=== PATIENT | male | born 1945 | race Caucasian/White ===

== ENCOUNTER 2021-09-17 13:34 | Emergency (ER) | payer MEDICARE, BC ==
[2021-09-17 14:17] LABS: #Eosinphils 0.1 thou/uL (0.0-0.7); #Lymphocytes 1.4 thou/uL (1.20-3.40); #Monocytes 0.8 thou/uL (0.11-0.59); %Basophils 0.4 % (0.0-1.0); %Monocytes 9.4 % (0.0-10.0); %Neutrophils 72.2 % (42.0-75.0); Hemoglobin 10.9 g/dL (14.0-18.0); Mean Corpuscular HGB CONC 33.1 g/dL (32.0-36.0); Mean Corpuscular Hemoglobin 27.5 pg (27.0-31.0); Mean Corpuscular Volume 82.9 fL (78.0-98.0); Mean Platelet Volume 7.6 fL (7.4-10.4); Platelet Count 320 thou/uL (130-400); RBC Distribution Width 13.3 % (11.5-14.5); Red Blood Cell (RBC) Count 3.96 mill/uL (4.70-6.10); White Blood Cell (WBC) Count 8.4 thou/uL (4.8-10.8)
[2021-09-17 14:38] LABS: Bilirubin Negative (Negative); Blood, Urine Negative (Negative); Clarity Clear (Clear); Glucose, Urine (Dipstick) Greater than 1000 mg/dL (Negative); Ketone, Urine Negative (Negative); Leukocyte Negative Leu/uL (Negative); Nitrite Negative (Negative); Protein, Urine (Dipstick) 20 mg/dL (Neg-Trace); Specific Gravity, Urine 1.024 (1.002-1.036); Urobilinogen Normal mg/dL (Less than 2)
[2021-09-17 14:38] LABS: ALT (SGPT) Less than 7 U/L (8-55); AST (SGOT) 6 U/L (5-34); Albumin 3.3 g/dL (3.4-4.8); Alkaline Phosphatase 126 U/L (40-110); Anion Gap 14 mmol/L (10-20); BUN (Urea Nitrogen) 11 mg/dL (8.4-25.7); Bilirubin, Total 0.3 mg/dL (0.2-1.2); Calc. Creatinine Clearance 0 mL/min (70-130); Carbon Dioxide 25 mmol/L (23-31); Chloride 99 mmol/L (98-107); Globulin 3.8 g/dL (2.4-3.5); Glucose 359 mg/dL (83-110); Potassium 3.9 mmol/L (3.5-5.1); Protein, Total 7.1 g/dL (5.8-8.1); Sodium 134 mmol/L (136-145)
[2021-09-17 14:40] LABS: Acetaminophen Less than 10.0 mcg/mL (10.0-30.0); Alcohol Less than 10 mg/dL (Less than 10); Salicylate Less than 8.0 mg/dL (15.0-30.0)
[2021-09-17 14:46] LABS: Amphetamine Not Detected (NotDetected); Barbiturates Screen Not Detected (NotDetected); Benzodiazepine Screen Not Detected (NotDetected); Cocaine Metabolite Screen Not Detected (NotDetected); Methadone Not Detected (NotDetected); Methamphetamine Not Detected (NotDetected); Opiate Screen Not Detected (NotDetected); Oxycodone Screen Not Detected (NotDetected); Phencyclidine (PCP) Not Detected (NotDetected); THC/Cannabinoid Screen Not Detected (NotDetected); Tricyclic Screen Not Detected (NotDetected)
[2021-09-17] MEDS ORDERED: Insulin Regular 300 UNITS/3 ML VIAL ONE (14:56)
[2021-09-17] MEDS ORDERED: Gabapentin 300 MG CAP PO SCH ×2 (15:15→21:15)
[2021-09-17] MEDS ORDERED: Insulin Glargine 30 UNITS/0.3 ML VIAL SC SCH (21:15)
[2021-09-17] MEDS ORDERED: traZODone HCl 50 MG TAB PO SCH (21:15)
[2021-09-17] MEDS ORDERED: traZODone HCl 50 MG TAB ONE (21:54)
[2021-09-18] MEDS ORDERED: Acetaminophen 500 MG TAB ONE ×3 (02:19→17:28)
[2021-09-19] MEDS ORDERED: Insulin Regular 300 UNITS/3 ML VIAL ONE (00:26)
[2021-09-19] MEDS ORDERED: traZODone HCl 50 MG TAB ONE (00:31)
[2021-09-19] MEDS ORDERED: Gabapentin 300 MG CAP PO SCH ×3 (00:45→21:00)
[2021-09-19] MEDS ORDERED: traZODone HCl 50 MG TAB PO SCH ×2 (00:45→09:30)
[2021-09-19] MEDS ORDERED: Insulin Glargine 30 UNITS/0.3 ML VIAL SC SCH ×3 (00:45→21:00)
[2021-09-19] MEDS ORDERED: Atorvastatin Calcium 40 MG TAB PO SCH ×2 (00:45→09:45)
[2021-09-19] MEDS ORDERED: Carvedilol 6.25 MG TAB PO SCH ×3 (00:45→21:00)
[2021-09-19] MEDS ORDERED: Insulin Regular 300 UNITS/3 ML VIAL SC SCH (09:30)
[2021-09-19] MEDS ORDERED: Acetaminophen 500 MG TAB PO SCH (09:30)
[2021-09-19 09:46] LABS: SARS-CoV-2 NAA Rapid Test Not Detected (NotDetected)
[2021-09-19] MEDS ORDERED: Furosemide 40 MG TAB PO SCH (14:00)
[2021-09-19] MEDS ORDERED: glipiZIDE 5 MG TAB PO SCH (16:30)
== END 2021-09-19 19:14 ==
LOC: ERS 13:34
DX: R45.851 Suicidal ideations (principal); E11.9 Type 2 diabetes mellitus without complications; E78.5 Hyperlipidemia, unspecified; E78.00 Pure hypercholesterolemia, unspecified; J44.9 Chronic obstructive pulmonary disease, unspecified; I11.0 Hypertensive heart disease with heart failure; I50.9 Heart failure, unspecified; Z20.822 Contact with and (suspected) exposure to COVID-19; Z79.4 Long term (current) use of insulin; Z79.899 Other long term (current) drug therapy
CPT/HCPCS: 51701; 80053; 80306; 80307; 81003; 82962; 85025; 93005; 99285; U0002; 36415; 36416; J1815

== ENCOUNTER 2021-12-22 10:15 | Emergency (ER) | payer OTHER, MEDICARE, BC ==
[2021-12-22 11:13] LABS: #Eosinphils 0.2 thou/uL (0.0-0.7); #Lymphocytes 1.3 thou/uL (1.20-3.40); #Monocytes 0.5 thou/uL (0.11-0.59); #Neutrophils 6.7 thou/uL (1.40-6.50); %Basophils 0.5 % (0.0-1.0); %Eosinophils 1.9 % (0.0-10.0); %Lymphocytes 14.8 % (21.0-51.0); %Monocytes 5.9 % (0.0-10.0); %Neutrophils 76.9 % (42.0-75.0); Mean Corpuscular HGB CONC 31.1 g/dL (32.0-36.0); Mean Corpuscular Hemoglobin 26.7 pg (27.0-31.0); Mean Corpuscular Volume 85.7 fL (78.0-98.0); Mean Platelet Volume 7.9 fL (7.4-10.4); Platelet Count 349 thou/uL (130-400); RBC Distribution Width 14.8 % (11.5-14.5); Red Blood Cell (RBC) Count 4.49 mill/uL (4.70-6.10); White Blood Cell (WBC) Count 8.8 thou/uL (4.8-10.8)
[2021-12-22 11:23] LABS: ALT (SGPT) 16 U/L (8-55); AST (SGOT) 13 U/L (5-34); Acetaminophen Less than 10.0 mcg/mL (10.0-30.0); Albumin 3.7 g/dL (3.4-4.8); Alcohol Less than 10 mg/dL (Less than 10); Alkaline Phosphatase 120 U/L (40-110); Anion Gap 14 mmol/L (10-20); BUN (Urea Nitrogen) 13 mg/dL (8.4-25.7); Bilirubin, Total 0.3 mg/dL (0.2-1.2); CK (CPK) 30 U/L (30-200); Calc. Creatinine Clearance 0 mL/min (70-130); Calcium 9.6 mg/dL (7.8-10.44); Carbon Dioxide 26 mmol/L (23-31); Chloride 103 mmol/L (98-107); Estimated GFR 77; Globulin 3.6 g/dL (2.4-3.5); Glucose 202 mg/dL (83-110); Potassium 3.9 mmol/L (3.5-5.1); Protein, Total 7.3 g/dL (5.8-8.1); Salicylate Less than 8.0 mg/dL (15.0-30.0); Sodium 139 mmol/L (136-145)
[2021-12-22 12:23] LABS: Amphetamine Not Detected (NotDetected); Barbiturates Screen Not Detected (NotDetected); Benzodiazepine Screen Not Detected (NotDetected); Cocaine Metabolite Screen Not Detected (NotDetected); Methadone Not Detected (NotDetected); Methamphetamine Not Detected (NotDetected); Opiate Screen Detected (NotDetected); Oxycodone Screen Not Detected (NotDetected); Phencyclidine (PCP) Not Detected (NotDetected); THC/Cannabinoid Screen Not Detected (NotDetected); Tricyclic Screen Not Detected (NotDetected)
[2021-12-22 18:53] LABS: SARS-CoV-2 NAA Rapid Test Not Detected (NotDetected)
[2021-12-22 23:04] LABS: Bilirubin Negative (Negative); Blood, Urine Negative (Negative); Clarity Clear (Clear); Glucose, Urine (Dipstick) Normal (Negative); Ketone, Urine Negative (Negative); Leukocyte Negative Leu/uL (Negative); Nitrite Negative (Negative); Protein, Urine (Dipstick) Negative (Neg-Trace); Specific Gravity, Urine 1.017 (1.002-1.036); Urobilinogen Normal mg/dL (Less than 2)
[2021-12-23] MEDS ORDERED: Gabapentin 300 MG CAP PO SCH (02:30)
[2021-12-23] MEDS ORDERED: Ondansetron ODT 4 MG TAB ONE (12:51)
== END 2021-12-23 12:51 ==
LOC: ERS 10:15
DX: R45.851 Suicidal ideations (principal); E11.9 Type 2 diabetes mellitus without complications; E78.00 Pure hypercholesterolemia, unspecified; I10 Essential (primary) hypertension; J44.9 Chronic obstructive pulmonary disease, unspecified; N40.0 Benign prostatic hyperplasia without lower urinary tract symptoms; Z20.822 Contact with and (suspected) exposure to COVID-19
CPT/HCPCS: 36415; 71045; 80053; 80306; 80307; 81003; 82550; 84443; 85025; 93005; Q0162; U0002

== ENCOUNTER 2022-07-28 11:39 | Inpatient (IN) | payer MEDICARE, BC ==
[2022-07-28 13:01] LABS: #Basophils 0.1 thou/uL (0.0-0.2); #Eosinphils 0.1 thou/uL (0.0-0.7); #Lymphocytes 1.3 thou/uL (1.20-3.40); #Monocytes 0.6 thou/uL (0.11-0.59); #Neutrophils 4.2 thou/uL (1.40-6.50); %Basophils 0.9 % (0.0-1.0); %Eosinophils 1.4 % (0.0-10.0); %Lymphocytes 20.7 % (21.0-51.0); %Monocytes 9.4 % (0.0-10.0); %Neutrophils 67.6 % (42.0-75.0); Hemoglobin 12.3 g/dL (14.0-18.0); Mean Corpuscular HGB CONC 32.4 g/dL (32.0-36.0); Mean Corpuscular Hemoglobin 27.2 pg (27.0-31.0); Mean Corpuscular Volume 83.9 fl (78.0-98.0); Mean Platelet Volume 8.4 fL (7.4-10.4); Platelet Count 291 10x3/uL (130-400); RBC Distribution Width 14.8 % (11.5-14.5); Red Blood Cell (RBC) Count 4.53 mill/uL (4.70-6.10); White Blood Cell (WBC) Count 6.3 10x3/uL (4.8-10.8)
[2022-07-28 13:36] LABS: ALT (SGPT) 17 U/L (8-55); AST (SGOT) 17 U/L (5-34); Albumin 3.5 g/dL (3.4-4.8); Alkaline Phosphatase 115 U/L (40-110); Anion Gap 17 mmol/L (10-20); BUN (Urea Nitrogen) 14 mg/dL (8.4-25.7); Bilirubin, Total 0.3 mg/dL (0.2-1.2); Calc. Creatinine Clearance 0 mL/min (70-130); Calcium 8.9 mg/dL (7.8-10.44); Carbon Dioxide 20 mmol/L (23-31); Chloride 99 mmol/L (98-107); Estimated GFR 51; Globulin 3.5 g/dL (2.4-3.5); Glucose 283 mg/dL (83-110); Magnesium 1.7 mg/dL (1.6-2.6); Potassium 3.8 mmol/L (3.5-5.1); Sodium 132 mmol/L (136-145)
[2022-07-28 13:48] LABS: Actual Bicarbonate (HCO3v) 22 mEq/L (22-28); Base Excess -0.2 mEq/L (-2.0 to +3.0); Calcium, Ionized (venous) 1.08 mmol/L (1.16-1.32); Chloride (VBG) 100 mmol/L (98-106); Potassium (VBG) 3.83 mmol/L (3.70-5.30); Sodium 132.1 mmol/L (133-146); pH (venous) 7.49 (7.32-7.43)
[2022-07-28 15:29] LABS: Bacteria/HPF 1+ HPF (None Seen); Bilirubin Negative (Negative); Blood, Urine Negative (Negative); Clarity Clear (Clear); Glucose, Urine (Dipstick) 30 mg/dL (Negative); Ketone, Urine Negative (Negative); Leukocyte Negative Leu/uL (Negative); Nitrite Negative (Negative); Protein, Urine (Dipstick) 30 mg/dL (Neg-Trace); RBC/HPF 0-3 HPF (0-3); Specific Gravity, Urine 1.021 (1.002-1.036); Squamous Epithelial 0-3 HPF (0-3); Urobilinogen Normal mg/dL (Less than 2); WBC/HPF 0-3 HPF (0-3); pH, Urine 5.5 (5.0-9.0)
[2022-07-28] MEDS ORDERED: Senokot S 8.6-50 MG TAB PO PRN (16:43)
[2022-07-28] MEDS ORDERED: Ondansetron ODT 4 MG TAB PO PRN (16:43)
[2022-07-28] MEDS ORDERED: Ondansetron PF 4 MG/2 ML Vial IVP PRN (16:43)
[2022-07-28] MEDS ORDERED: Calcium Carbonate 500 MG ChewTAB PO PRN (16:43)
[2022-07-28] MEDS ORDERED: cefTRIAXone (ROCEPHIN) 2 GM VIAL ONE (17:36)
[2022-07-28 17:41] LABS: Lactic Acid 1.9 mmol/L (0.5-2.2)
[2022-07-28 18:03] LABS: Troponin I Less than 0.010 ng/mL (< 0.028)
[2022-07-28] MEDS ORDERED: HumaLOG 300 UNITS/3 ML VIAL SC PRN (18:25)
[2022-07-28] MEDS ORDERED: Dextrose 5% in Water 1,000 ML IV PRN (18:25)
[2022-07-28] MEDS ORDERED: Dextrose 50% Abboject 50 ML SYRINGE SLOW IVP PRN (18:25)
[2022-07-28 19:01] LABS: SARS-CoV-2 NAA Rapid Test Not Detected (NotDetected)
[2022-07-28] MEDS: Mometasone/Formoterol 200/5 60 PUFF INH SCH (19:11)
[2022-07-28] MEDS: Sodium Chloride 0.9% 1,000 ML IV SCH (19:13)
[2022-07-28] MEDS: Apixaban 5 MG TAB PO SCH (20:27)
[2022-07-28] MEDS: Gabapentin 300 MG CAP PO SCH (20:27)
[2022-07-28] MEDS: DULoxetine 20 MG CAP PO SCH (20:27)
[2022-07-28] MEDS: rOPINIRole HCl 2 MG TAB PO SCH (20:28)
[2022-07-28] MEDS: Insulin Glargine 30 UNITS/0.3 ML VIAL SC SCH (20:28)
[2022-07-28] MEDS: Tamsulosin HCl 0.4 MG CAP PO SCH (20:28)
[2022-07-28 21:43] LABS: Troponin I Less than 0.010 ng/mL (< 0.028)
[2022-07-28] MEDS: Acetaminophen 325 MG TAB PO PRN (21:53)
[2022-07-28] MEDS: VANCOMYCIN 2 GRAM/500 ML BAG 2 GM in Premix Bag 1 BAG IVPB SCH (22:00)
[2022-07-28] MEDS ORDERED: Melatonin 3 MG TAB PO PRN (23:21)
[2022-07-29] MEDS ORDERED: Magnesium 2 GM/50 ML(in water) 2 GM in Premix Bag 1 BAG IVPB SCH (05:00)
[2022-07-29 05:12] LABS: #Eosinphils 0.2 thou/uL (0.0-0.7); #Lymphocytes 1.6 thou/uL (1.20-3.40); #Monocytes 0.6 thou/uL (0.11-0.59); #Neutrophils 2.2 thou/uL (1.40-6.50); %Basophils 0.8 % (0.0-1.0); %Eosinophils 3.5 % (0.0-10.0); %Lymphocytes 35.6 % (21.0-51.0); %Monocytes 12.1 % (0.0-10.0); Hemoglobin 11.4 g/dL (14.0-18.0); Mean Corpuscular HGB CONC 31.2 g/dL (32.0-36.0); Mean Corpuscular Hemoglobin 27.3 pg (27.0-31.0); Mean Corpuscular Volume 87.4 fl (78.0-98.0); Mean Platelet Volume 8.3 fL (7.4-10.4); Platelet Count 234 10x3/uL (130-400); RBC Distribution Width 14.7 % (11.5-14.5); Red Blood Cell (RBC) Count 4.16 mill/uL (4.70-6.10); White Blood Cell (WBC) Count 4.5 10x3/uL (4.8-10.8)
[2022-07-29 05:14] LABS: Hemoglobin A1c 9.3 % (4.0-6.0)
[2022-07-29 05:44] LABS: ALT (SGPT) 13 U/L (8-55); AST (SGOT) 11 U/L (5-34); Albumin 3.1 g/dL (3.4-4.8); Alkaline Phosphatase 98 U/L (40-110); Anion Gap 13 mmol/L (10-20); BUN (Urea Nitrogen) 13 mg/dL (8.4-25.7); Bilirubin, Total 0.2 mg/dL (0.2-1.2); Calc. Creatinine Clearance 87 mL/min (70-130); Calcium 8.5 mg/dL (7.8-10.44); Carbon Dioxide 22 mmol/L (23-31); Chloride 105 mmol/L (98-107); Estimated GFR 63; Globulin 3.1 g/dL (2.4-3.5); Glucose 168 mg/dL (83-110); Potassium 3.4 mmol/L (3.5-5.1); Protein, Total 6.2 g/dL (5.8-8.1); Sodium 137 mmol/L (136-145)
[2022-07-29 06:09] LABS: Magnesium 1.6 mg/dL (1.6-2.6)
[2022-07-29] MEDS: Mometasone/Formoterol 200/5 60 PUFF INH SCH ×2 (07:52→19:49)
[2022-07-29] MEDS: Sodium Chloride 0.9% 1,000 ML IV SCH (09:24)
[2022-07-29] MEDS: Insulin Glargine 30 UNITS/0.3 ML VIAL SC SCH ×2 (09:25→20:36)
[2022-07-29] MEDS: Tamsulosin HCl 0.4 MG CAP PO SCH ×2 (09:26→20:35)
[2022-07-29] MEDS: Amiodarone 200 MG TAB PO SCH (09:26)
[2022-07-29] MEDS: Aspirin 81 mg Enteric Coated Tablet PO SCH (09:26)
[2022-07-29] MEDS: DULoxetine 20 MG CAP PO SCH ×2 (09:26→20:34)
[2022-07-29] MEDS: Apixaban 5 MG TAB PO SCH (09:26)
[2022-07-29] MEDS: Gabapentin 300 MG CAP PO SCH ×2 (09:26→20:35)
[2022-07-29] MEDS: HumaLOG 300 UNITS/3 ML VIAL SC PRN ×2 (11:03→16:29)
[2022-07-29] MEDS ORDERED: Diltiazem HCl 125 MG, Admixture Fee 1 EACH in Sodium Chloride 0.9% 100 ML IVPB SCH ×2 (12:00→17:15)
[2022-07-29] MEDS ORDERED: Metoprolol Tartrate 100 MG TAB PO SCH (14:30)
[2022-07-29] MEDS ORDERED: Potassium Chloride 20 MEQ TAB PO SCH (15:00)
[2022-07-29] MEDS ORDERED: Diltiazem 125 MG in Sodium Chloride 0.9% 100 ML IVPB SCH (15:30)
[2022-07-29] MEDS: Rivaroxaban 10 MG TAB PO SCH (16:29)
[2022-07-29] MEDS: cefTRIAXone\\ROCEPHIN 1 GM in Sodium Chloride 0.9% 100 ML IVPB SCH (17:21)
[2022-07-29] MEDS: Acetaminophen 325 MG TAB PO PRN (20:34)
[2022-07-29] MEDS: Metoprolol Tartrate 100 MG TAB PO SCH (20:34)
[2022-07-29] MEDS: rOPINIRole HCl 2 MG TAB PO SCH (20:34)
[2022-07-29] MEDS: Transdermal Patch Removal TOP SCH (20:36)
[2022-07-29] MEDS: VANCOMYCIN 2 GRAM/500 ML BAG 2 GM in Premix Bag 1 BAG IVPB SCH (22:54)
[2022-07-30] MEDS: Acetaminophen 325 MG TAB PO PRN (00:50)
[2022-07-30] MEDS: traZODone HCl 50 MG TAB PO PRN ×2 (00:51→20:21)
[2022-07-30 05:12] LABS: #Eosinphils 0.2 thou/uL (0.0-0.7); #Lymphocytes 1.9 thou/uL (1.20-3.40); #Monocytes 0.6 thou/uL (0.11-0.59); #Neutrophils 2.7 thou/uL (1.40-6.50); %Basophils 0.6 % (0.0-1.0); %Eosinophils 2.8 % (0.0-10.0); %Lymphocytes 35.3 % (21.0-51.0); %Monocytes 11.3 % (0.0-10.0); Hemoglobin 11.4 g/dL (14.0-18.0); Mean Corpuscular Hemoglobin 29.8 pg (27.0-31.0); Mean Corpuscular Volume 84.9 fl (78.0-98.0); Mean Platelet Volume 7.8 fL (7.4-10.4); Platelet Count 255 10x3/uL (130-400); RBC Distribution Width 14.7 % (11.5-14.5); Red Blood Cell (RBC) Count 3.83 mill/uL (4.70-6.10); White Blood Cell (WBC) Count 5.4 10x3/uL (4.8-10.8)
[2022-07-30 05:41] LABS: Anion Gap 13 mmol/L (10-20); BUN (Urea Nitrogen) 16 mg/dL (8.4-25.7); Calc. Creatinine Clearance 94 mL/min (70-130); Calcium 8.6 mg/dL (7.8-10.44); Carbon Dioxide 21 mmol/L (23-31); Chloride 107 mmol/L (98-107); Estimated GFR 69; Glucose 113 mg/dL (83-110); Magnesium 2.1 mg/dL (1.6-2.6); Potassium 3.7 mmol/L (3.5-5.1); Sodium 137 mmol/L (136-145)
[2022-07-30] MEDS: Mometasone/Formoterol 200/5 60 PUFF INH SCH ×2 (08:18→18:39)
[2022-07-30] MEDS: Amiodarone 200 MG TAB PO SCH (08:44)
[2022-07-30] MEDS: Tamsulosin HCl 0.4 MG CAP PO SCH ×2 (08:45→20:21)
[2022-07-30] MEDS: Gabapentin 300 MG CAP PO SCH ×2 (08:45→20:22)
[2022-07-30] MEDS: Aspirin 81 mg Enteric Coated Tablet PO SCH (08:46)
[2022-07-30] MEDS: DULoxetine 20 MG CAP PO SCH ×2 (08:46→20:21)
[2022-07-30] MEDS: Insulin Glargine 30 UNITS/0.3 ML VIAL SC SCH ×2 (08:47→20:25)
[2022-07-30] MEDS: Lidocaine 4% Patch TD SCH (08:47)
[2022-07-30] MEDS: glipiZIDE 5 MG TAB PO SCH (08:47)
[2022-07-30] MEDS: Metoprolol Tartrate 100 MG TAB PO SCH ×2 (08:47→20:21)
[2022-07-30] MEDS ORDERED: Digoxin 0.5 MG/2 ML AMP SLOW IVP SCH (15:45)
[2022-07-30] MEDS: Rivaroxaban 10 MG TAB PO SCH (16:25)
[2022-07-30] MEDS: cefTRIAXone\\ROCEPHIN 1 GM in Sodium Chloride 0.9% 100 ML IVPB SCH (17:05)
[2022-07-30] MEDS: HumaLOG 300 UNITS/3 ML VIAL SC PRN (18:22)
[2022-07-30] MEDS: rOPINIRole HCl 2 MG TAB PO SCH (20:21)
[2022-07-30] MEDS: Transdermal Patch Removal TOP SCH (21:05)
[2022-07-31 05:12] LABS: Magnesium 1.9 mg/dL (1.6-2.6)
[2022-07-31] MEDS: Mometasone/Formoterol 200/5 60 PUFF INH SCH ×2 (08:46→19:12)
[2022-07-31] MEDS: Metoprolol Tartrate 100 MG TAB PO SCH ×2 (10:20→20:14)
[2022-07-31] MEDS: Gabapentin 300 MG CAP PO SCH ×2 (10:20→20:13)
[2022-07-31] MEDS: Tamsulosin HCl 0.4 MG CAP PO SCH ×2 (10:20→20:13)
[2022-07-31] MEDS: Insulin Glargine 30 UNITS/0.3 ML VIAL SC SCH ×2 (10:21→21:04)
[2022-07-31] MEDS: Amiodarone 200 MG TAB PO SCH (10:21)
[2022-07-31] MEDS: Lidocaine 4% Patch TD SCH (10:21)
[2022-07-31] MEDS: glipiZIDE 5 MG TAB PO SCH (10:21)
[2022-07-31] MEDS: Aspirin 81 mg Enteric Coated Tablet PO SCH (10:21)
[2022-07-31] MEDS: cefTRIAXone\\ROCEPHIN 1 GM in Sodium Chloride 0.9% 100 ML IVPB SCH (17:13)
[2022-07-31] MEDS: Rivaroxaban 10 MG TAB PO SCH (17:13)
[2022-07-31] MEDS: DULoxetine 20 MG CAP PO SCH ×2 (17:13→20:14)
[2022-07-31] MEDS: rOPINIRole HCl 2 MG TAB PO SCH (20:13)
[2022-07-31] MEDS: Transdermal Patch Removal TOP SCH (20:14)
[2022-07-31] MEDS: traZODone HCl 50 MG TAB PO PRN (21:07)
[2022-08-01 06:47] LABS: Magnesium 1.8 mg/dL (1.6-2.6)
[2022-08-01] MEDS: Mometasone/Formoterol 200/5 60 PUFF INH SCH ×2 (07:29→18:59)
[2022-08-01] MEDS: glipiZIDE 5 MG TAB PO SCH (08:30)
[2022-08-01] MEDS: Tamsulosin HCl 0.4 MG CAP PO SCH ×2 (08:30→20:25)
[2022-08-01] MEDS: Aspirin 81 mg Enteric Coated Tablet PO SCH (08:31)
[2022-08-01] MEDS: Gabapentin 300 MG CAP PO SCH ×2 (08:31→20:26)
[2022-08-01] MEDS: Metoprolol Tartrate 100 MG TAB PO SCH ×2 (08:31→20:26)
[2022-08-01] MEDS: Amiodarone 200 MG TAB PO SCH (08:31)
[2022-08-01] MEDS: Lidocaine 4% Patch TD SCH (08:32)
[2022-08-01] MEDS: Insulin Glargine 30 UNITS/0.3 ML VIAL SC SCH ×2 (08:32→20:25)
[2022-08-01] MEDS: DULoxetine 20 MG CAP PO SCH ×2 (09:56→20:26)
[2022-08-01] MEDS: Rivaroxaban 10 MG TAB PO SCH (14:00)
[2022-08-01] MEDS: cefTRIAXone\\ROCEPHIN 1 GM in Sodium Chloride 0.9% 100 ML IVPB SCH (17:04)
[2022-08-01] MEDS: Transdermal Patch Removal TOP SCH (20:22)
[2022-08-01] MEDS: rOPINIRole HCl 2 MG TAB PO SCH (20:25)
[2022-08-01] MEDS: traZODone HCl 50 MG TAB PO PRN (20:42)
[2022-08-02] MEDS: Mometasone/Formoterol 200/5 60 PUFF INH SCH ×2 (06:53→19:00)
[2022-08-02] MEDS: Insulin Glargine 30 UNITS/0.3 ML VIAL SC SCH ×2 (09:13→21:31)
[2022-08-02] MEDS: glipiZIDE 5 MG TAB PO SCH (09:13)
[2022-08-02] MEDS: Amiodarone 200 MG TAB PO SCH (09:19)
[2022-08-02] MEDS: Aspirin 81 mg Enteric Coated Tablet PO SCH (09:19)
[2022-08-02] MEDS: Lidocaine 4% Patch TD SCH (09:19)
[2022-08-02] MEDS: DULoxetine 20 MG CAP PO SCH ×2 (09:19→22:28)
[2022-08-02] MEDS: Gabapentin 300 MG CAP PO SCH ×2 (09:19→21:29)
[2022-08-02] MEDS: Tamsulosin HCl 0.4 MG CAP PO SCH ×2 (09:20→21:29)
[2022-08-02] MEDS: Metoprolol Tartrate 100 MG TAB PO SCH (09:20)
[2022-08-02 11:03] VITALS: BP 133/86
[2022-08-02] MEDS ORDERED: Heparin 10,000 UNITS/ 10 ML VIAL ONE ×2 (11:11→11:59)
[2022-08-02] MEDS ORDERED: Protamine Sulfate 50 MG/5 ML VIAL ONE (11:59)
[2022-08-02] MEDS ORDERED: Fentanyl 250 MCG/5 ML VIAL ONE (11:59)
[2022-08-02] MEDS ORDERED: Heparin 25,000 units/D5W 500 ML ONE (11:59)
[2022-08-02] MEDS ORDERED: Isoproterenol 0.2 MG/1 ML AMP ONE (11:59)
[2022-08-02] MEDS ORDERED: DOPamine 400 MG/D5W 250 ML 0 ML ONE (12:11)
[2022-08-02] MEDS ORDERED: GLYCOPYRROLATE/PF 0.2 MG/ML VIAL ONE (12:28)
[2022-08-02] MEDS ORDERED: Phenylephrine 10 MG/ML VIAL ONE (12:28)
[2022-08-02] MEDS ORDERED: Ondansetron PF 4 MG/2 ML Vial ONE ×2 (12:28→14:45)
[2022-08-02] MEDS ORDERED: NEOSTIGMINE 3 MG/3 ML SYR 3 MG/3 ML SYRINGE ONE (12:28)
[2022-08-02] MEDS ORDERED: Rocuronium Bromide 10 MG/ML (10ML VIAL) ONE (12:28)
[2022-08-02] MEDS ORDERED: PROPOFOL 200 MG/20 ML VIAL ONE (12:28)
[2022-08-02] MEDS ORDERED: Lidocaine 1% (PF) 30 ML VIAL ONE (12:48)
[2022-08-02] MEDS ORDERED: Ondansetron HCl/PF 4 MG/2 ML Vial IVP PRN (15:38)
[2022-08-02] MEDS ORDERED: Promethazine HCl 25 MG/ML VIAL IM PRN (15:38)
[2022-08-02] MEDS ORDERED: Ketorolac Tromethamine 30 MG/ML VIAL IVP PRN (15:45)
[2022-08-02] MEDS ORDERED: DOPamine 400 MG/D5W 250 ML 250 ML IVPB PRN (15:48)
[2022-08-02] MEDS ORDERED: Furosemide 40 MG TAB PO PRN (15:54)
[2022-08-02] MEDS ORDERED: Atropine Sulfate 1 mg/10 ml Syringe IVP PRN (16:03)
[2022-08-02] MEDS: cefTRIAXone\\ROCEPHIN 1 GM in Sodium Chloride 0.9% 100 ML IVPB SCH (17:23)
[2022-08-02 17:45] VITALS: BMI 43.4
[2022-08-02] MEDS: Sucralfate 1 GM TAB PO SCH ×2 (17:48→22:29)
[2022-08-02] MEDS ORDERED: Metoprolol Tartrate 25 MG TAB PO SCH (21:00)
[2022-08-02] MEDS: Rivaroxaban 10 MG TAB PO SCH (21:28)
[2022-08-02] MEDS: rOPINIRole HCl 2 MG TAB PO SCH (21:41)
[2022-08-02] MEDS: Transdermal Patch Removal TOP SCH (21:42)
[2022-08-03] MEDS: Mometasone/Formoterol 200/5 60 PUFF INH SCH (06:59)
[2022-08-03] MEDS: glipiZIDE 5 MG TAB PO SCH (07:56)
[2022-08-03] MEDS: Sucralfate 1 GM TAB PO SCH ×2 (08:00→11:52)
[2022-08-03] MEDS: Gabapentin 300 MG CAP PO SCH (08:42)
[2022-08-03] MEDS: Lidocaine 4% Patch TD SCH (08:42)
[2022-08-03] MEDS: Insulin Glargine 30 UNITS/0.3 ML VIAL SC SCH (08:42)
[2022-08-03] MEDS: Metoprolol Tartrate 25 MG TAB PO SCH ×2 (08:43→09:10)
[2022-08-03] MEDS: Tamsulosin HCl 0.4 MG CAP PO SCH (08:43)
[2022-08-03] MEDS: Aspirin 81 mg Enteric Coated Tablet PO SCH (08:43)
[2022-08-03] MEDS: DULoxetine 20 MG CAP PO SCH (09:09)
[2022-08-03 12:19] VITALS: TEMP 98.9
== END 2022-08-03 15:45 | disposition home health service (06) | DRG 274 ==
LOC: SUATTDRO 11:39 → ERS 11:39 → 2NO 18:37 → CCU 08-02 16:33
PROVIDERS: ADMIT Family Medicine; ATTEND Family Medicine
PROC: 02583ZZ Destruction of Conduction Mechanism, Percutaneous Approach (ICD-10-PCS; principal; 2022-08-02)
PROC: 4A023FZ Measurement of Cardiac Rhythm, Percutaneous Approach (ICD-10-PCS; 2022-08-02)
PROC: 4A0234Z Measurement of Cardiac Electrical Activity, Percutaneous Approach (ICD-10-PCS; 2022-08-02)
PROC: 02K83ZZ Map Conduction Mechanism, Percutaneous Approach (ICD-10-PCS; 2022-08-02)
PROC: 3E033XZ Introduction of Vasopressor into Peripheral Vein, Percutaneous Approach (ICD-10-PCS; 2022-08-02)
DX: I48.4 Atypical atrial flutter (principal); I13.0 Hypertensive heart and chronic kidney disease with heart failure and stage 1 through stage 4 chronic kidney disease, or unspecified chronic kidney disease; N17.9 Acute kidney failure, unspecified; I50.42 Chronic combined systolic (congestive) and diastolic (congestive) heart failure; I48.19 Other persistent atrial fibrillation; Z66 Do not resuscitate; Z20.822 Contact with and (suspected) exposure to COVID-19; R79.89 Other specified abnormal findings of blood chemistry; F03.A0 Unspecified dementia, mild, without behavioral disturbance, psychotic disturbance, mood disturbance, and anxiety; F41.9 Anxiety disorder, unspecified; F32.A Depression, unspecified; G47.33 Obstructive sleep apnea (adult) (pediatric); J44.9 Chronic obstructive pulmonary disease, unspecified; E78.5 Hyperlipidemia, unspecified; E11.51 Type 2 diabetes mellitus with diabetic peripheral angiopathy without gangrene; E11.621 Type 2 diabetes mellitus with foot ulcer; L97.529 Non-pressure chronic ulcer of other part of left foot with unspecified severity; E11.40 Type 2 diabetes mellitus with diabetic neuropathy, unspecified; N18.9 Chronic kidney disease, unspecified; E11.22 Type 2 diabetes mellitus with diabetic chronic kidney disease; E11.65 Type 2 diabetes mellitus with hyperglycemia; G25.81 Restless legs syndrome; N40.0 Benign prostatic hyperplasia without lower urinary tract symptoms; E87.6 Hypokalemia; E86.0 Dehydration; R00.1 Bradycardia, unspecified; Z89.511 Acquired absence of right leg below knee; Z79.51 Long term (current) use of inhaled steroids; Z79.01 Long term (current) use of anticoagulants; Z79.4 Long term (current) use of insulin; Z79.52 Long term (current) use of systemic steroids; Z79.899 Other long term (current) drug therapy
CPT/HCPCS: 36415; 36416; 71045; 80048; 80053; 80202; 81003; 81015; 82010; 82805; 83036; 83605; 83735; 83880; 84145; 84484; 85025; 86140; 87040; 87081; 87086; 93005; 93010; 93623; 93655; 93656; 93657; 94664; 96365; 97139; C1732; C1759; C1760; C1894; J0696; J1160; J1265; J1644; J1815; J2001; J2370; J2405; J2704; J2720; J3010; J3370; J3475; J3490; J7050

== ENCOUNTER 2022-08-04 14:05 | Emergency (ER) | payer MEDICARE, BC ==
[2022-08-04 15:30] LABS: Bilirubin Negative (Negative); Blood, Urine Negative (Negative); Clarity Clear (Clear); Glucose, Urine (Dipstick) 50 mg/dL (Negative); Ketone, Urine Negative (Negative); Leukocyte Negative Leu/uL (Negative); Nitrite Negative (Negative); Protein, Urine (Dipstick) Negative (Neg-Trace); Specific Gravity, Urine 1.007 (1.002-1.036); Urobilinogen Normal mg/dL (Less than 2); pH, Urine 5.5 (5.0-9.0)
== END 2022-08-04 17:44 | disposition home or self-care (01) ==
LOC: ERS 14:05
DX: R33.9 Retention of urine, unspecified (principal); I11.0 Hypertensive heart disease with heart failure; I50.9 Heart failure, unspecified; J44.9 Chronic obstructive pulmonary disease, unspecified; E11.9 Type 2 diabetes mellitus without complications; E78.5 Hyperlipidemia, unspecified; Z79.4 Long term (current) use of insulin; Z79.84 Long term (current) use of oral hypoglycemic drugs
CPT/HCPCS: 51702; 81003

== ENCOUNTER 2022-10-20 01:35 | Observation (INO) | payer MEDICARE, BC ==
[2022-10-20 02:47] LABS: Bacteria/HPF None Seen HPF (None Seen); Bilirubin Negative (Negative); Blood, Urine Negative (Negative); CAUTI Indications for Culture Dysuria,urgency,freq; Clarity Clear (Clear); Glucose, Urine (Dipstick) Normal (Negative); Ketone, Urine Negative (Negative); Leukocyte Negative Leu/uL (Negative); Nitrite Negative (Negative); Protein, Urine (Dipstick) 50 mg/dL (Neg-Trace); RBC/HPF 0-3 HPF (0-3); Specific Gravity, Urine 1.012 (1.002-1.036); Squamous Epithelial None Seen HPF (0-3); Urobilinogen Normal mg/dL (Less than 2); WBC/HPF 0-3 HPF (0-3); pH, Urine 6.5 (5.0-9.0)
[2022-10-20 02:50] LABS: Urine Culture Reflex No No
[2022-10-20 03:20] LABS: #Basophils 0.1 thou/uL (0.0-0.2); #Eosinphils 0.2 thou/uL (0.0-0.7); #Monocytes 0.7 thou/uL (0.11-0.59); #Neutrophils 5.8 thou/uL (1.40-6.50); %Basophils 0.6 % (0.0-1.0); %Eosinophils 2.2 % (0.0-10.0); %Lymphocytes 19.6 % (21.0-51.0); %Monocytes 7.8 % (0.0-10.0); %Neutrophils 69.4 % (42.0-75.0); Hemoglobin 11.9 g/dL (14.0-18.0); Mean Corpuscular HGB CONC 32.7 g/dL (32.0-36.0); Mean Corpuscular Hemoglobin 27.2 pg (27.0-31.0); Mean Corpuscular Volume 83.3 fl (78.0-98.0); Mean Platelet Volume 9.9 fL (7.4-10.4); Platelet Count 385 10x3/uL (130-400); RBC Distribution Width 15.2 % (11.5-14.5); Red Blood Cell (RBC) Count 4.37 mill/uL (4.70-6.10); White Blood Cell (WBC) Count 8.3 10x3/uL (4.8-10.8)
[2022-10-20 03:45] LABS: ALT (SGPT) 7 U/L (8-55); AST (SGOT) 11 U/L (5-34); Albumin 3.6 g/dL (3.4-4.8); Alkaline Phosphatase 106 U/L (40-110); Anion Gap 14 mmol/L (10-20); BUN (Urea Nitrogen) 8 mg/dL (8.4-25.7); Bilirubin, Total 0.4 mg/dL (0.2-1.2); Calc. Creatinine Clearance 0 mL/min (70-130); Calcium 9.4 mg/dL (7.8-10.44); Carbon Dioxide 25 mmol/L (23-31); Chloride 102 mmol/L (98-107); Estimated GFR 74; Globulin 3.4 g/dL (2.4-3.5); Glucose 117 mg/dL (83-110); Lipase Less than 4 U/L (8-78); Potassium 3.6 mmol/L (3.5-5.1); Sodium 137 mmol/L (136-145)
[2022-10-20 04:08] LABS: CKMB 1.7 ng/mL (0-6.6)
[2022-10-20] MEDS ORDERED: Aspirin Chewable 81 MG TAB ONE (04:38)
[2022-10-20] MEDS ORDERED: Ondansetron ODT 4 MG TAB ONE (04:38)
[2022-10-20] MEDS ORDERED: Furosemide 40 MG/4 ML VIAL ONE (05:49)
[2022-10-20] MEDS ORDERED: Nitroglycerin 2% Ointment 1 INCH/1 GM Packet ONE (05:49)
[2022-10-20] MEDS ORDERED: Ondansetron ODT 4 MG TAB PO PRN (09:11)
[2022-10-20] MEDS ORDERED: Ondansetron PF 4 MG/2 ML Vial IVP PRN (09:11)
[2022-10-20] MEDS ORDERED: Acetaminophen 325 MG TAB PO PRN (09:11)
[2022-10-20] MEDS ORDERED: Sodium Chloride 0.9% 1,000 ML IV SCH (09:15)
[2022-10-20] MEDS ORDERED: Iopamidol-370 76% 500 ML MDV (1 ML CHARGE) ONE (09:24)
[2022-10-20 09:43] VITALS: BMI 40.5
[2022-10-20 12:02] LABS: Troponin I Less than 0.010 ng/mL (< 0.028)
[2022-10-20] MEDS ORDERED: Furosemide 20 MG/2 ML VIAL SLOW IVP SCH (14:00)
[2022-10-20 15:12] LABS: Troponin I 0.016 ng/mL (< 0.028)
[2022-10-20] MEDS ORDERED: Dextrose 50% Abboject 50 ML SYRINGE SLOW IVP PRN (16:49)
[2022-10-20] MEDS ORDERED: Dextrose 5% in Water 1,000 ML IV PRN (16:49)
[2022-10-20] MEDS ORDERED: Glucagon 1 MG/ML KIT IM PRN (16:49)
[2022-10-20] MEDS ORDERED: HumaLOG 300 UNITS/3 ML VIAL SC PRN (16:49)
[2022-10-20] MEDS ORDERED: traZODone HCl 50 MG TAB PO PRN (16:57)
[2022-10-20] MEDS: Rivaroxaban 10 MG TAB PO SCH (17:27)
[2022-10-20] MEDS: HumaLOG 300 UNITS/3 ML VIAL SC PRN (18:20)
[2022-10-20] MEDS: Gabapentin 300 MG CAP PO SCH (21:13)
[2022-10-20] MEDS: rOPINIRole HCl 2 MG TAB PO SCH (21:14)
[2022-10-20] MEDS: Losartan 25 MG TAB PO SCH (21:14)
[2022-10-20] MEDS: Furosemide 20 MG TAB PO SCH (21:14)
[2022-10-20] MEDS: DULoxetine 20 MG CAP PO SCH (21:14)
[2022-10-20] MEDS: Metoprolol Tartrate 25 MG TAB PO SCH (21:14)
[2022-10-20] MEDS ORDERED: HYDROcodone/Acetaminophen 5/325 mg Tablet PO PRN (23:31)
[2022-10-21] MEDS: Metoprolol Tartrate 25 MG TAB PO SCH ×2 (08:25→20:48)
[2022-10-21] MEDS: Furosemide 20 MG TAB PO SCH ×2 (08:25→20:48)
[2022-10-21] MEDS: DULoxetine 20 MG CAP PO SCH ×2 (08:25→20:47)
[2022-10-21] MEDS: Gabapentin 300 MG CAP PO SCH ×2 (08:25→20:47)
[2022-10-21] MEDS: Aspirin Chewable 81 MG TAB PO SCH (08:25)
[2022-10-21 10:49] LABS: #Basophils 0.1 thou/uL (0.0-0.2); #Eosinphils 0.2 thou/uL (0.0-0.7); #Monocytes 0.6 thou/uL (0.11-0.59); #Neutrophils 4.1 thou/uL (1.40-6.50); %Basophils 1.1 % (0.0-1.0); %Eosinophils 3.7 % (0.0-10.0); %Lymphocytes 21.2 % (21.0-51.0); %Monocytes 9.5 % (0.0-10.0); Hemoglobin 11.9 g/dL (14.0-18.0); Mean Corpuscular HGB CONC 30.4 g/dL (32.0-36.0); Mean Corpuscular Hemoglobin 27.3 pg (27.0-31.0); Mean Corpuscular Volume 89.9 fl (78.0-98.0); Mean Platelet Volume 10.4 fL (7.4-10.4); Platelet Count 301 10x3/uL (130-400); RBC Distribution Width 15.6 % (11.5-14.5); Red Blood Cell (RBC) Count 4.36 mill/uL (4.70-6.10); White Blood Cell (WBC) Count 6.5 10x3/uL (4.8-10.8)
[2022-10-21 10:57] LABS: Anion Gap 12 mmol/L (10-20); BUN (Urea Nitrogen) 12 mg/dL (8.4-25.7); Calc. Creatinine Clearance 85 mL/min (70-130); Carbon Dioxide 26 mmol/L (23-31); Chloride 103 mmol/L (98-107); Estimated GFR 62; Glucose 139 mg/dL (83-110); Potassium 3.6 mmol/L (3.5-5.1); Sodium 137 mmol/L (136-145)
[2022-10-21] MEDS: Rivaroxaban 10 MG TAB PO SCH (18:09)
[2022-10-21] MEDS: HumaLOG 300 UNITS/3 ML VIAL SC PRN (18:17)
[2022-10-21] MEDS: Losartan 25 MG TAB PO SCH (20:47)
[2022-10-21] MEDS: rOPINIRole HCl 2 MG TAB PO SCH (20:47)
[2022-10-21] MEDS ORDERED: Atorvastatin Calcium 40 MG TAB PO SCH (21:00)
[2022-10-22 06:03] LABS: #Basophils 0.1 thou/uL (0.0-0.2); #Eosinphils 0.3 thou/uL (0.0-0.7); #Monocytes 0.6 thou/uL (0.11-0.59); #Neutrophils 4.6 thou/uL (1.40-6.50); %Basophils 0.7 % (0.0-1.0); %Eosinophils 3.8 % (0.0-10.0); %Lymphocytes 23.4 % (21.0-51.0); %Monocytes 8.2 % (0.0-10.0); %Neutrophils 63.6 % (42.0-75.0); Hemoglobin 11.2 g/dL (14.0-18.0); Mean Corpuscular HGB CONC 31.2 g/dL (32.0-36.0); Mean Corpuscular Hemoglobin 26.9 pg (27.0-31.0); Mean Platelet Volume 9.8 fL (7.4-10.4); Platelet Count 359 10x3/uL (130-400); RBC Distribution Width 15.5 % (11.5-14.5); Red Blood Cell (RBC) Count 4.17 mill/uL (4.70-6.10); White Blood Cell (WBC) Count 7.2 10x3/uL (4.8-10.8)
[2022-10-22 06:10] LABS: Mean Corpuscular Volume 86.1 fl (78.0-98.0)
[2022-10-22 06:24] LABS: Anion Gap 13 mmol/L (10-20); BUN (Urea Nitrogen) 15 mg/dL (8.4-25.7); Calc. Creatinine Clearance 91 mL/min (70-130); Calcium 8.9 mg/dL (7.8-10.44); Carbon Dioxide 26 mmol/L (23-31); Chloride 102 mmol/L (98-107); Estimated GFR 67; Glucose 137 mg/dL (83-110); Potassium 3.6 mmol/L (3.5-5.1); Sodium 137 mmol/L (136-145)
[2022-10-22] MEDS: Aspirin Chewable 81 MG TAB PO SCH (09:11)
[2022-10-22] MEDS: Metoprolol Tartrate 25 MG TAB PO SCH (09:11)
[2022-10-22] MEDS: Gabapentin 300 MG CAP PO SCH (09:11)
[2022-10-22] MEDS: DULoxetine 20 MG CAP PO SCH (09:12)
[2022-10-22] MEDS: Furosemide 20 MG TAB PO SCH (09:12)
[2022-10-22 09:20] VITALS: BP 196/90; TEMP 97.3
== END 2022-10-22 13:46 | disposition home or self-care (01) ==
LOC: ERS 01:35 → SUATTDRO 01:35 → 2SW 06:43
PROVIDERS: ADMIT Student in an Organized Health Care Education/Training Program; ATTEND Internal Medicine
DX: R11.2 Nausea with vomiting, unspecified (principal); K21.9 Gastro-esophageal reflux disease without esophagitis; I48.92 Unspecified atrial flutter; I50.32 Chronic diastolic (congestive) heart failure; I11.0 Hypertensive heart disease with heart failure; F03.90 Unspecified dementia, unspecified severity, without behavioral disturbance, psychotic disturbance, mood disturbance, and anxiety; F41.9 Anxiety disorder, unspecified; F32.A Depression, unspecified; K52.9 Noninfective gastroenteritis and colitis, unspecified; R77.8 Other specified abnormalities of plasma proteins; G47.33 Obstructive sleep apnea (adult) (pediatric); J44.9 Chronic obstructive pulmonary disease, unspecified; E78.5 Hyperlipidemia, unspecified; I73.9 Peripheral vascular disease, unspecified; E11.42 Type 2 diabetes mellitus with diabetic polyneuropathy; Z96.651 Presence of right artificial knee joint; Z79.4 Long term (current) use of insulin; Z79.01 Long term (current) use of anticoagulants; Z79.899 Other long term (current) drug therapy
CPT/HCPCS: 71045; 74177; 80048 ×2; 80053; 81001; 82553; 82962 ×2; 83690; 83880; 84484 ×2; 85025 ×3; 93005; 94760; 96372; 97139 ×3; G0378 ×4; 36415; 36416; 51701; 96374; J1650; J1815; J1940; J7050; Q0162; Q9967

== ENCOUNTER 2022-11-06 10:19 | Emergency (ER) | payer MEDICARE, BC ==
[~2022-11-06 10:19] MED LIST: Iopamidol-370 76% 500 ML MDV (1 ML CHARGE) ONE
[2022-11-06 10:48] LABS: #Eosinphils 0.2 thou/uL (0.0-0.7); #Monocytes 0.6 thou/uL (0.11-0.59); #Neutrophils 5.3 thou/uL (1.40-6.50); %Basophils 0.6 % (0.0-1.0); %Eosinophils 2.3 % (0.0-10.0); %Lymphocytes 13.2 % (21.0-51.0); %Monocytes 8.6 % (0.0-10.0); %Neutrophils 74.9 % (42.0-75.0); Mean Corpuscular HGB CONC 31.9 g/dL (32.0-36.0); Mean Corpuscular Hemoglobin 26.7 pg (27.0-31.0); Mean Corpuscular Volume 83.6 fl (78.0-98.0); Platelet Count 350 10x3/uL (130-400); RBC Distribution Width 15.5 % (11.5-14.5); White Blood Cell (WBC) Count 7.1 10x3/uL (4.8-10.8)
[2022-11-06 11:20] LABS: ALT (SGPT) 7 U/L (8-55); AST (SGOT) 11 U/L (5-34); Albumin 3.6 g/dL (3.4-4.8); Alkaline Phosphatase 97 U/L (40-110); Anion Gap 13 mmol/L (10-20); BUN (Urea Nitrogen) 7 mg/dL (8.4-25.7); Bilirubin, Total 0.4 mg/dL (0.2-1.2); Calc. Creatinine Clearance 0 mL/min (70-130); Calcium 8.9 mg/dL (7.8-10.44); Carbon Dioxide 24 mmol/L (23-31); Chloride 103 mmol/L (98-107); Estimated GFR 66; Globulin 3.1 g/dL (2.4-3.5); Glucose 236 mg/dL (83-110); Lipase Less than 4 U/L (8-78); Potassium 3.3 mmol/L (3.5-5.1); Protein, Total 6.7 g/dL (5.8-8.1); Sodium 137 mmol/L (136-145)
[2022-11-06 13:52] LABS: Lactic Acid 1.8 mmol/L (0.5-2.2)
[2022-11-06] MEDS ORDERED: Acetaminophen 325 MG TAB ONE (17:20)
[2022-11-06] MEDS ORDERED: Ketorolac Tromethamine 30 MG/ML VIAL ONE (17:20)
== END 2022-11-06 19:19 ==
LOC: ERS 10:19
DX: R10.84 Generalized abdominal pain (principal); E11.9 Type 2 diabetes mellitus without complications; E78.00 Pure hypercholesterolemia, unspecified; I10 Essential (primary) hypertension; J44.9 Chronic obstructive pulmonary disease, unspecified; Z79.899 Other long term (current) drug therapy
CPT/HCPCS: 36415; 36416; 74177; 80053; 83605; 83690; 85025; 86850; 86870; 86900; 86901; 96374; J1885; Q9967

== ENCOUNTER 2022-11-25 12:53 | Emergency (ER) | payer MEDICARE, BC, OTHER ==
[2022-11-25] MEDS ORDERED: Ondansetron PF 4 MG/2 ML Vial ONE (13:29)
[2022-11-25] MEDS ORDERED: Morphine 4 MG/ML VIAL ONE (13:29)
[2022-11-25 13:54] LABS: #Basophils 0.1 thou/uL (0.0-0.2); #Eosinphils 0.2 thou/uL (0.0-0.7); #Monocytes 0.6 thou/uL (0.11-0.59); #Neutrophils 4.6 thou/uL (1.40-6.50); %Basophils 0.7 % (0.0-1.0); %Eosinophils 2.9 % (0.0-10.0); %Lymphocytes 21.3 % (21.0-51.0); %Monocytes 8.5 % (0.0-10.0); %Neutrophils 66.3 % (42.0-75.0); Hematocrit 35.7 % (42.0-52.0); Hemoglobin 11.2 g/dL (14.0-18.0); Mean Corpuscular HGB CONC 31.4 g/dL (32.0-36.0); Mean Platelet Volume 10.4 fL (7.4-10.4); Platelet Count 275 10x3/uL (130-400); RBC Distribution Width 15.4 % (11.5-14.5); Red Blood Cell (RBC) Count 4.15 mill/uL (4.70-6.10); White Blood Cell (WBC) Count 6.9 10x3/uL (4.8-10.8)
[2022-11-25 14:12] LABS: ALT (SGPT) 14 U/L (8-55); AST (SGOT) 15 U/L (5-34); Albumin 3.6 g/dL (3.4-4.8); Alkaline Phosphatase 106 U/L (40-110); Anion Gap 11 mmol/L (10-20); BUN (Urea Nitrogen) 21 mg/dL (8.4-25.7); Bilirubin, Total 0.2 mg/dL (0.2-1.2); Calc. Creatinine Clearance 0 mL/min (70-130); Calcium 9.4 mg/dL (7.8-10.44); Carbon Dioxide 25 mmol/L (23-31); Chloride 106 mmol/L (98-107); Estimated GFR 54; Globulin 3.4 g/dL (2.4-3.5); Glucose 219 mg/dL (83-110); Potassium 5.2 mmol/L (3.5-5.1); Sodium 137 mmol/L (136-145)
[2022-11-25 14:15] LABS: Troponin I Less than 0.010 ng/mL (< 0.028)
[2022-11-25 14:51] LABS: Acetaminophen Less than 10 mcg/mL (10.0-30.0); Alcohol Less than 10.0 mg/dL (Less than 10); Salicylate Less than 8.0 mg/dL (15.0-30.0)
[2022-11-25 15:32] LABS: Amphetamine Not Detected (NotDetected); Barbiturates Screen Not Detected (NotDetected); Benzodiazepine Screen Not Detected (NotDetected); Cocaine Metabolite Screen Not Detected (NotDetected); Methadone Not Detected (NotDetected); Methamphetamine Not Detected (NotDetected); Opiate Screen Detected (NotDetected); Oxycodone Screen Not Detected (NotDetected); Phencyclidine (PCP) Not Detected (NotDetected); THC/Cannabinoid Screen Not Detected (NotDetected); Tricyclic Screen Not Detected (NotDetected)
[2022-11-25 15:37] LABS: Bacteria/HPF None Seen HPF (None Seen); Bilirubin Negative (Negative); Blood, Urine Negative (Negative); CAUTI Indications for Culture Pelvic or flank pain; Clarity Clear (Clear); Glucose, Urine (Dipstick) 300 mg/dL (Negative); Ketone, Urine Negative (Negative); Leukocyte 75 Leu/uL (Negative); Nitrite Negative (Negative); Protein, Urine (Dipstick) 10 mg/dL (Neg-Trace); RBC/HPF None Seen HPF (0-3); Specific Gravity, Urine 1.017 (1.002-1.036); Squamous Epithelial 0-3 HPF (0-3); Urobilinogen Normal mg/dL (Less than 2)
[2022-11-25 15:40] LABS: Urine Culture Reflex No No
[2022-11-25 19:17] LABS: Troponin I Less than 0.010 ng/mL (< 0.028)
[2022-11-25] MEDS ORDERED: traZODone HCl 50 MG TAB ONE ×2 (21:19→21:40)
[2022-11-25] MEDS ORDERED: HYDROcodone/Acetaminophen 5/325 mg Tablet ONE (23:50)
== END 2022-11-26 08:49 ==
LOC: ERS 12:53
DX: R45.851 Suicidal ideations (principal); E11.9 Type 2 diabetes mellitus without complications; E78.00 Pure hypercholesterolemia, unspecified; I11.0 Hypertensive heart disease with heart failure; I50.9 Heart failure, unspecified; I48.91 Unspecified atrial fibrillation; J44.9 Chronic obstructive pulmonary disease, unspecified; Z79.899 Other long term (current) drug therapy; Z79.4 Long term (current) use of insulin
CPT/HCPCS: 71045; 80053; 80306; 80307; 81001; 83880; 84484; 85025; 93005; 96374; 96375; J2270; J2405

== ENCOUNTER 2022-12-17 07:28 | Emergency (ER) | payer MEDICARE, BC ==
[2022-12-17 07:58] LABS: #Basophils 0.1 thou/uL (0.0-0.2); #Eosinphils 0.1 thou/uL (0.0-0.7); #Monocytes 0.6 thou/uL (0.11-0.59); #Neutrophils 4.8 thou/uL (1.40-6.50); %Basophils 0.7 % (0.0-1.0); %Eosinophils 2.1 % (0.0-10.0); %Lymphocytes 16.7 % (21.0-51.0); %Monocytes 9.1 % (0.0-10.0); %Neutrophils 71.1 % (42.0-75.0); Hematocrit 32.7 % (42.0-52.0); Hemoglobin 10.6 g/dL (14.0-18.0); Mean Corpuscular HGB CONC 32.4 g/dL (32.0-36.0); Mean Corpuscular Hemoglobin 26.7 pg (27.0-31.0); Mean Corpuscular Volume 82.4 fl (78.0-98.0); Mean Platelet Volume 9.4 fL (7.4-10.4); Platelet Count 350 10x3/uL (130-400); RBC Distribution Width 15.9 % (11.5-14.5); Red Blood Cell (RBC) Count 3.97 mill/uL (4.70-6.10); White Blood Cell (WBC) Count 6.7 10x3/uL (4.8-10.8)
[2022-12-17 08:22] LABS: ALT (SGPT) 12 U/L (8-55); AST (SGOT) 12 U/L (5-34); Albumin 3.4 g/dL (3.4-4.8); Alkaline Phosphatase 99 U/L (40-110); Anion Gap 11 mmol/L (10-20); BUN (Urea Nitrogen) 6 mg/dL (8.4-25.7); Bilirubin, Total 0.3 mg/dL (0.2-1.2); Calc. Creatinine Clearance 0 mL/min (70-130); Calcium 8.9 mg/dL (7.8-10.44); Carbon Dioxide 25 mmol/L (23-31); Chloride 105 mmol/L (98-107); Estimated GFR 61; Globulin 3.2 g/dL (2.4-3.5); Glucose 209 mg/dL (83-110); Lipase Less than 4 U/L (8-78); Potassium 3.3 mmol/L (3.5-5.1); Protein, Total 6.6 g/dL (5.8-8.1); Sodium 138 mmol/L (136-145)
[2022-12-17 08:24] LABS: Troponin I 0.016 ng/mL (< 0.028)
[2022-12-17] MEDS ORDERED: Iopamidol-370 76% 500 ML MDV (1 ML CHARGE) ONE (11:47)
== END 2022-12-17 13:56 | disposition home or self-care (01) ==
LOC: ERS 07:28
DX: K92.2 Gastrointestinal hemorrhage, unspecified (principal); E78.5 Hyperlipidemia, unspecified; I11.0 Hypertensive heart disease with heart failure; I50.9 Heart failure, unspecified; J44.9 Chronic obstructive pulmonary disease, unspecified; Z87.891 Personal history of nicotine dependence; Z79.899 Other long term (current) drug therapy
CPT/HCPCS: 36415; 71045; 74177; 80053; 82274; 83690; 83880; 84484; 85025; 93005; 94760; Q9967

== ENCOUNTER 2023-01-29 10:16 | Inpatient (IN) | payer MEDICARE, BC ==
[2023-01-29 11:27] LABS: #Eosinphils 0.3 thou/uL (0.0-0.7); #Monocytes 0.6 thou/uL (0.11-0.59); #Neutrophils 4.9 thou/uL (1.40-6.50); %Basophils 0.6 % (0.0-1.0); %Eosinophils 4.2 % (0.0-10.0); %Lymphocytes 15.1 % (21.0-51.0); %Monocytes 9.1 % (0.0-10.0); %Neutrophils 70.7 % (42.0-75.0); Hematocrit 40.8 % (42.0-52.0); Hemoglobin 12.7 g/dL (14.0-18.0); Mean Corpuscular HGB CONC 31.1 g/dL (32.0-36.0); Mean Corpuscular Hemoglobin 26.6 pg (27.0-31.0); Mean Corpuscular Volume 85.5 fl (78.0-98.0); Mean Platelet Volume 10.1 fL (7.4-10.4); Platelet Count 262 10x3/uL (130-400); RBC Distribution Width 15.9 % (11.5-14.5); Red Blood Cell (RBC) Count 4.77 mill/uL (4.70-6.10); White Blood Cell (WBC) Count 6.9 10x3/uL (4.8-10.8)
[2023-01-29 11:54] LABS: Troponin I Less than 0.010 ng/mL (< 0.028)
[2023-01-29 11:59] LABS: ALT (SGPT) 19 U/L (8-55); AST (SGOT) 19 U/L (5-34); Albumin 4.2 g/dL (3.4-4.8); Alkaline Phosphatase 113 U/L (40-110); Anion Gap 12 mmol/L (10-20); BUN (Urea Nitrogen) 15 mg/dL (8.4-25.7); Bilirubin, Total 0.3 mg/dL (0.2-1.2); CK (CPK) 228 U/L (30-200); Calc. Creatinine Clearance 0 mL/min (70-130); Calcium 9.8 mg/dL (7.8-10.44); Carbon Dioxide 28 mmol/L (23-31); Chloride 99 mmol/L (98-107); Estimated GFR 66; Globulin 3.3 g/dL (2.4-3.5); Glucose 186 mg/dL (83-110); Magnesium 1.9 mg/dL (1.6-2.6); Potassium 4.4 mmol/L (3.5-5.1); Protein, Total 7.5 g/dL (5.8-8.1); Sodium 135 mmol/L (136-145)
[2023-01-29 14:09] LABS: Bilirubin Negative (Negative); Blood, Urine Negative (Negative); Glucose, Urine (Dipstick) Negative (Negative); Ketone, Urine Negative (Negative); Leukocyte Negative (Negative); Nitrite Negative (Negative); Protein, Urine (Dipstick) Negative (Neg-Trace); Specific Gravity, Urine 1.025 (1.005-1.030); Urobilinogen 0.2 mg/dL (Less than 2)
[2023-01-29 14:11] LABS: CAUTI Indications for Culture Pelvic or flank pain; Clarity Clear (Clear); RBC/HPF 0-3 HPF (0-3); Squamous Epithelial 0-3 HPF (0-3); WBC/HPF 0-3 HPF (0-3)
[2023-01-29 14:12] LABS: Bacteria/HPF None Seen HPF (None Seen); Urine Culture Reflex No No
[2023-01-29 16:14] LABS: Acetaminophen Less than 10 mcg/mL (10.0-30.0); Alcohol Less than 10.0 mg/dL (Less than 10); Salicylate Less than 8.0 mg/dL (15.0-30.0)
[2023-01-29] MEDS ORDERED: Ondansetron ODT 4 MG TAB PO PRN (16:22)
[2023-01-29] MEDS ORDERED: Lorazepam 1 MG TAB PO PRN (16:33)
[2023-01-29 17:05] VITALS: BMI 36.2
[2023-01-29 17:05] LABS: Amphetamine Not Detected (NotDetected); Barbiturates Screen Not Detected (NotDetected); Benzodiazepine Screen Not Detected (NotDetected); Cocaine Metabolite Screen Not Detected (NotDetected); Methadone Not Detected (NotDetected); Methamphetamine Not Detected (NotDetected); Opiate Screen Not Detected (NotDetected); Oxycodone Screen Not Detected (NotDetected); Phencyclidine (PCP) Not Detected (NotDetected); THC/Cannabinoid Screen Not Detected (NotDetected); Tricyclic Screen Not Detected (NotDetected)
[2023-01-29] MEDS ORDERED: Dextrose 5% in Water 1,000 ML IV PRN (18:39)
[2023-01-29] MEDS ORDERED: Dextrose 50% Abboject 50 ML SYRINGE SLOW IVP PRN (18:39)
[2023-01-29] MEDS ORDERED: HumaLOG 300 UNITS/3 ML VIAL SC PRN (18:39)
[2023-01-29] MEDS ORDERED: Glucagon 1 MG/ML KIT IM PRN (18:39)
[2023-01-29] MEDS ORDERED: Melatonin 3 MG TAB PO PRN (19:37)
[2023-01-29] MEDS: Gabapentin 300 MG CAP PO SCH (21:22)
[2023-01-29] MEDS: Insulin Glargine 30 UNITS/0.3 ML VIAL SC SCH (21:22)
[2023-01-29] MEDS: rOPINIRole HCl 2 MG TAB PO SCH (21:23)
[2023-01-29] MEDS: DULoxetine 20 MG CAP PO SCH (21:23)
[2023-01-29] MEDS: traZODone HCl 50 MG TAB PO PRN (21:23)
[2023-01-29] MEDS: Atorvastatin Calcium 40 MG TAB PO SCH (21:23)
[2023-01-30] MEDS: Aspirin Chewable 81 MG TAB PO SCH (09:59)
[2023-01-30] MEDS: DULoxetine 20 MG CAP PO SCH ×2 (09:59→20:56)
[2023-01-30] MEDS: Gabapentin 300 MG CAP PO SCH ×2 (09:59→20:55)
[2023-01-30] MEDS: Rivaroxaban 10 MG TAB PO SCH (09:59)
[2023-01-30] MEDS: HumaLOG 300 UNITS/3 ML VIAL SC PRN ×2 (12:36→17:28)
[2023-01-30] MEDS: Atorvastatin Calcium 40 MG TAB PO SCH (20:56)
[2023-01-30] MEDS: Insulin Glargine 30 UNITS/0.3 ML VIAL SC SCH (20:57)
[2023-01-30] MEDS: rOPINIRole HCl 2 MG TAB PO SCH (20:57)
[2023-01-30] MEDS: traZODone HCl 50 MG TAB PO PRN (21:03)
[2023-01-31] MEDS: HumaLOG 300 UNITS/3 ML VIAL SC PRN (05:11)
[2023-01-31 07:20] VITALS: TEMP 97.9
[2023-01-31] MEDS: Rivaroxaban 10 MG TAB PO SCH (09:19)
[2023-01-31] MEDS: Aspirin Chewable 81 MG TAB PO SCH (09:19)
[2023-01-31] MEDS: DULoxetine 20 MG CAP PO SCH (09:20)
[2023-01-31] MEDS: Gabapentin 300 MG CAP PO SCH (09:20)
[2023-01-31 12:45] VITALS: BP 162/89
[2023-02-01] MEDS ORDERED: FLU VACC QS2023(65UP)/MF59C/PF 60 MCG/0.5 ML SYRINGE IM ONE (09:00)
== END 2023-01-31 14:10 | disposition home or self-care (01) | DRG 923 ==
LOC: ERS 10:16 → ERHOLD 14:44 → T4-B 18:49 → OBSVTOIN 01-30 12:29
PROVIDERS: ADMIT Internal Medicine; ATTEND Internal Medicine
DX: T76.31XA Adult psychological abuse, suspected, initial encounter (principal); F43.10 Post-traumatic stress disorder, unspecified; R53.1 Weakness; F41.9 Anxiety disorder, unspecified; F32.A Depression, unspecified; J44.9 Chronic obstructive pulmonary disease, unspecified; E11.51 Type 2 diabetes mellitus with diabetic peripheral angiopathy without gangrene; E11.40 Type 2 diabetes mellitus with diabetic neuropathy, unspecified; I48.0 Paroxysmal atrial fibrillation; Z79.899 Other long term (current) drug therapy; Z79.82 Long term (current) use of aspirin; Z89.511 Acquired absence of right leg below knee; Z90.49 Acquired absence of other specified parts of digestive tract; Z79.4 Long term (current) use of insulin; X58.XXXA Exposure to other specified factors, initial encounter
CPT/HCPCS: 36416; 71045; 80053; 80306; 80307; 81001; 82550; 83735; 84484; 85025; 93005; J1815

== ENCOUNTER 2023-02-01 05:35 | Emergency (ER) | payer MEDICARE, BC ==
[2023-02-01] MEDS ORDERED: Morphine 4 MG/ML VIAL ONE (06:20)
== END 2023-02-01 07:34 | disposition home or self-care (01) ==
LOC: ERS 05:35
DX: S70.02XA Contusion of left hip, initial encounter (principal); W07.XXXA Fall from chair, initial encounter; Z87.891 Personal history of nicotine dependence
CPT/HCPCS: 70450; 71045; 72125; 72170; J2270

== ENCOUNTER 2023-02-03 19:02 | Emergency (ER) | payer MEDICARE, BC ==
[2023-02-03 21:33] LABS: #Basophils 0.1 thou/uL (0.0-0.2); #Eosinphils 0.3 thou/uL (0.0-0.7); #Neutrophils 6.9 thou/uL (1.40-6.50); %Basophils 0.6 % (0.0-1.0); %Eosinophils 2.9 % (0.0-10.0); %Lymphocytes 20.3 % (21.0-51.0); %Monocytes 9.2 % (0.0-10.0); %Neutrophils 66.7 % (42.0-75.0); Hematocrit 37.5 % (42.0-52.0); Mean Corpuscular Hemoglobin 26.9 pg (27.0-31.0); Mean Corpuscular Volume 84.1 fl (78.0-98.0); Mean Platelet Volume 10.4 fL (7.4-10.4); Platelet Count 297 10x3/uL (130-400); RBC Distribution Width 15.8 % (11.5-14.5); Red Blood Cell (RBC) Count 4.46 mill/uL (4.70-6.10); White Blood Cell (WBC) Count 10.4 10x3/uL (4.8-10.8)
[2023-02-03 22:00] LABS: ALT (SGPT) 14 U/L (8-55); AST (SGOT) 17 U/L (5-34); Albumin 4.4 g/dL (3.4-4.8); Alkaline Phosphatase 111 U/L (40-110); Anion Gap 16 mmol/L (10-20); BUN (Urea Nitrogen) 15 mg/dL (8.4-25.7); Bilirubin, Total 0.5 mg/dL (0.2-1.2); CK (CPK) 130 U/L (30-200); Calc. Creatinine Clearance 0 mL/min (70-130); Calcium 9.6 mg/dL (7.8-10.44); Carbon Dioxide 23 mmol/L (23-31); Chloride 103 mmol/L (98-107); Estimated GFR 59; Globulin 2.7 g/dL (2.4-3.5); Glucose 147 mg/dL (83-110); Potassium 3.6 mmol/L (3.5-5.1); Protein, Total 7.1 g/dL (5.8-8.1); Sodium 138 mmol/L (136-145)
[2023-02-03 22:04] LABS: Troponin I 0.013 ng/mL (< 0.028)
== END 2023-02-03 22:29 | disposition home or self-care (01) ==
LOC: ERS 19:02
DX: S90.812A Abrasion, left foot, initial encounter (principal); E78.5 Hyperlipidemia, unspecified; E11.9 Type 2 diabetes mellitus without complications; I11.0 Hypertensive heart disease with heart failure; I50.9 Heart failure, unspecified; J44.9 Chronic obstructive pulmonary disease, unspecified; I48.91 Unspecified atrial fibrillation; Z87.891 Personal history of nicotine dependence; W18.30XA Fall on same level, unspecified, initial encounter
CPT/HCPCS: 36415; 80053; 82550; 84484; 85025; 93005

== ENCOUNTER 2023-02-07 23:00 | Emergency (ER) | payer MEDICARE, BC, OTHER ==
[2023-02-08] MEDS ORDERED: cefTRIAXone (ROCEPHIN) 2 GM VIAL ONE (00:25)
[2023-02-08 00:44] LABS: #Eosinphils 0.1 thou/uL (0.0-0.7); #Monocytes 0.7 thou/uL (0.11-0.59); %Basophils 0.3 % (0.0-1.0); %Eosinophils 1.9 % (0.0-10.0); %Lymphocytes 15.3 % (21.0-51.0); %Monocytes 10.3 % (0.0-10.0); %Neutrophils 71.8 % (42.0-75.0); Hematocrit 33.3 % (42.0-52.0); Hemoglobin 10.9 g/dL (14.0-18.0); Mean Corpuscular HGB CONC 32.7 g/dL (32.0-36.0); Mean Corpuscular Volume 82.6 fl (78.0-98.0); Mean Platelet Volume 10.3 fL (7.4-10.4); Platelet Count 293 10x3/uL (130-400); Red Blood Cell (RBC) Count 4.03 mill/uL (4.70-6.10)
[2023-02-08 01:08] LABS: ALT (SGPT) 16 U/L (8-55); AST (SGOT) 20 U/L (5-34); Albumin 3.9 g/dL (3.4-4.8); Alkaline Phosphatase 96 U/L (40-110); Anion Gap 16 mmol/L (10-20); BUN (Urea Nitrogen) 10 mg/dL (8.4-25.7); Bilirubin, Total 0.8 mg/dL (0.2-1.2); Calc. Creatinine Clearance 0 mL/min (70-130); Calcium 9.3 mg/dL (7.8-10.44); Carbon Dioxide 21 mmol/L (23-31); Chloride 101 mmol/L (98-107); Estimated GFR 64; Globulin 3.6 g/dL (2.4-3.5); Glucose 122 mg/dL (83-110); Potassium 3.3 mmol/L (3.5-5.1); Protein, Total 7.5 g/dL (5.8-8.1); Sodium 135 mmol/L (136-145)
== END 2023-02-08 01:20 | disposition home or self-care (01) ==
LOC: ERS 23:00
DX: L03.116 Cellulitis of left lower limb (principal); R29.6 Repeated falls; I11.0 Hypertensive heart disease with heart failure; I50.9 Heart failure, unspecified; E11.9 Type 2 diabetes mellitus without complications
CPT/HCPCS: 36415; 80053; 83605; 85025; 87040; 96374; J0696

== ENCOUNTER 2023-02-11 19:38 | Emergency (ER) | payer MEDICARE, BC ==
[2023-02-11 20:18] LABS: #Eosinphils 0.2 thou/uL (0.0-0.7); #Monocytes 0.6 thou/uL (0.11-0.59); #Neutrophils 4.4 thou/uL (1.40-6.50); %Basophils 0.3 % (0.0-1.0); %Lymphocytes 21.5 % (21.0-51.0); %Monocytes 9.3 % (0.0-10.0); %Neutrophils 65.6 % (42.0-75.0); Hemoglobin 10.1 g/dL (14.0-18.0); Mean Corpuscular HGB CONC 31.6 g/dL (32.0-36.0); Mean Corpuscular Hemoglobin 26.9 pg (27.0-31.0); Mean Corpuscular Volume 85.3 fl (78.0-98.0); Mean Platelet Volume 9.8 fL (7.4-10.4); Platelet Count 342 10x3/uL (130-400); RBC Distribution Width 14.9 % (11.5-14.5); Red Blood Cell (RBC) Count 3.75 mill/uL (4.70-6.10); White Blood Cell (WBC) Count 6.7 10x3/uL (4.8-10.8)
[2023-02-11] MEDS ORDERED: HYDROcodone/Acetaminophen 5/325 mg Tablet ONE (20:32)
[2023-02-11 20:39] LABS: ALT (SGPT) 10 U/L (8-55); AST (SGOT) 12 U/L (5-34); Albumin 3.6 g/dL (3.4-4.8); Alkaline Phosphatase 80 U/L (40-110); Anion Gap 12 mmol/L (10-20); BUN (Urea Nitrogen) 8 mg/dL (8.4-25.7); Bilirubin, Total 0.3 mg/dL (0.2-1.2); Calc. Creatinine Clearance 0 mL/min (70-130); Calcium 8.9 mg/dL (7.8-10.44); Carbon Dioxide 22 mmol/L (23-31); Chloride 103 mmol/L (98-107); Estimated GFR 71; Glucose 159 mg/dL (83-110); Potassium 3.9 mmol/L (3.5-5.1); Protein, Total 6.6 g/dL (5.8-8.1); Sodium 133 mmol/L (136-145)
== END 2023-02-12 00:36 | disposition home or self-care (01) ==
LOC: ERS 19:38
DX: E11.621 Type 2 diabetes mellitus with foot ulcer (principal); L97.429 Non-pressure chronic ulcer of left heel and midfoot with unspecified severity; I11.0 Hypertensive heart disease with heart failure; I50.9 Heart failure, unspecified; I48.91 Unspecified atrial fibrillation; Z79.4 Long term (current) use of insulin; Z79.84 Long term (current) use of oral hypoglycemic drugs; Z79.899 Other long term (current) drug therapy; Z89.511 Acquired absence of right leg below knee
CPT/HCPCS: 36415; 80053; 83605; 85025; 99285

== ENCOUNTER 2023-02-26 00:35 | Emergency (ER) | payer MEDICARE, BC ==
[2023-02-26 01:29] LABS: #Eosinphils 0.2 thou/uL (0.0-0.7); #Monocytes 0.7 thou/uL (0.11-0.59); #Neutrophils 4.2 thou/uL (1.40-6.50); %Basophils 0.6 % (0.0-1.0); %Eosinophils 2.3 % (0.0-10.0); %Lymphocytes 25.1 % (21.0-51.0); %Monocytes 10.4 % (0.0-10.0); %Neutrophils 61.3 % (42.0-75.0); Hematocrit 32.4 % (42.0-52.0); Hemoglobin 10.2 g/dL (14.0-18.0); Mean Corpuscular HGB CONC 31.5 g/dL (32.0-36.0); Mean Corpuscular Hemoglobin 26.4 pg (27.0-31.0); Mean Corpuscular Volume 83.9 fl (78.0-98.0); Mean Platelet Volume 9.8 fL (7.4-10.4); Platelet Count 350 10x3/uL (130-400); RBC Distribution Width 15.4 % (11.5-14.5); Red Blood Cell (RBC) Count 3.86 mill/uL (4.70-6.10); White Blood Cell (WBC) Count 6.8 10x3/uL (4.8-10.8)
[2023-02-26 01:52] LABS: ALT (SGPT) 10 U/L (8-55); AST (SGOT) 14 U/L (5-34); Albumin 3.6 g/dL (3.4-4.8); Alkaline Phosphatase 88 U/L (40-110); Anion Gap 16 mmol/L (10-20); BUN (Urea Nitrogen) 14 mg/dL (8.4-25.7); Bilirubin, Total 0.4 mg/dL (0.2-1.2); Calc. Creatinine Clearance 0 mL/min (70-130); Carbon Dioxide 20 mmol/L (23-31); Chloride 106 mmol/L (98-107); Estimated GFR 54; Glucose 149 mg/dL (83-110); Potassium 3.6 mmol/L (3.5-5.1); Protein, Total 6.6 g/dL (5.8-8.1); Sodium 138 mmol/L (136-145)
[2023-02-26] MEDS ORDERED: Iopamidol-370 76% 500 ML MDV (1 ML CHARGE) ONE (09:10)
== END 2023-02-26 04:47 | disposition home or self-care (01) ==
LOC: ERS 00:35
DX: S09.90XA Unspecified injury of head, initial encounter (principal); S22.31XA Fracture of one rib, right side, initial encounter for closed fracture; I11.0 Hypertensive heart disease with heart failure; I50.9 Heart failure, unspecified; I48.91 Unspecified atrial fibrillation; J44.9 Chronic obstructive pulmonary disease, unspecified; E11.9 Type 2 diabetes mellitus without complications; Z79.899 Other long term (current) drug therapy; Z79.4 Long term (current) use of insulin; W18.30XA Fall on same level, unspecified, initial encounter
CPT/HCPCS: 70450; 71260; 74177; 80053; 85025; 96360; Q9967

== ENCOUNTER 2023-02-27 11:47 | Emergency (ER) | payer MEDICARE, BC ==
[2023-02-27 12:15] LABS: #Basophils 0.1 thou/uL (0.0-0.2); #Eosinphils 0.1 thou/uL (0.0-0.7); #Monocytes 0.6 thou/uL (0.11-0.59); #Neutrophils 5.7 thou/uL (1.40-6.50); %Basophils 0.6 % (0.0-1.0); %Eosinophils 1.8 % (0.0-10.0); %Lymphocytes 15.8 % (21.0-51.0); %Monocytes 7.4 % (0.0-10.0); Hemoglobin 10.4 g/dL (14.0-18.0); Mean Corpuscular HGB CONC 31.5 g/dL (32.0-36.0); Mean Corpuscular Hemoglobin 26.5 pg (27.0-31.0); Mean Corpuscular Volume 84.2 fl (78.0-98.0); Mean Platelet Volume 9.8 fL (7.4-10.4); Platelet Count 372 10x3/uL (130-400); RBC Distribution Width 15.5 % (11.5-14.5); Red Blood Cell (RBC) Count 3.92 mill/uL (4.70-6.10); White Blood Cell (WBC) Count 7.7 10x3/uL (4.8-10.8)
[2023-02-27 12:39] LABS: ALT (SGPT) 8 U/L (8-55); AST (SGOT) 12 U/L (5-34); Alkaline Phosphatase 102 U/L (40-110); Anion Gap 13 mmol/L (10-20); BUN (Urea Nitrogen) 9 mg/dL (8.4-25.7); Bilirubin, Total 0.9 mg/dL (0.2-1.2); Calc. Creatinine Clearance 0 mL/min (70-130); Calcium 9.3 mg/dL (7.8-10.44); Carbon Dioxide 23 mmol/L (23-31); Chloride 104 mmol/L (98-107); Estimated GFR 61; Globulin 3.4 g/dL (2.4-3.5); Glucose 147 mg/dL (83-110); Potassium 3.9 mmol/L (3.5-5.1); Protein, Total 7.4 g/dL (5.8-8.1); Sodium 136 mmol/L (136-145)
[2023-02-27 12:41] LABS: Troponin I Less than 0.010 ng/mL (< 0.028)
== END 2023-02-27 14:25 | disposition home or self-care (01) ==
LOC: ERS 11:47
DX: S91.302A Unspecified open wound, left foot, initial encounter (principal); S90.812A Abrasion, left foot, initial encounter; I11.0 Hypertensive heart disease with heart failure; I50.9 Heart failure, unspecified; J44.9 Chronic obstructive pulmonary disease, unspecified; E11.9 Type 2 diabetes mellitus without complications; E78.5 Hyperlipidemia, unspecified; Z79.84 Long term (current) use of oral hypoglycemic drugs; Z79.899 Other long term (current) drug therapy; Z79.4 Long term (current) use of insulin; X58.XXXA Exposure to other specified factors, initial encounter
CPT/HCPCS: 36415; 71045; 80053; 83605; 83880; 84484; 85025; 87040

== ENCOUNTER 2023-09-28 13:27 | Inpatient (IN) | payer MEDICARE ==
[2023-09-28] MEDS ORDERED: Morphine 4 MG/ML VIAL ONE ×2 (16:07→18:55)
[2023-09-28] MEDS ORDERED: Ondansetron PF 4 MG/2 ML Vial ONE (16:07)
[2023-09-28 16:11] LABS: #Basophils 0.04 10x3/uL (0.0-0.2); %Basophils 0.4 % (0.0-1.0); %Eosinophils 0.7 % (0.0-10.0); %Lymphocytes 9.6 % (21.0-51.0); %Monocytes 10.1 % (0.0-10.0); %Neutrophils 78.5 % (42.0-75.0); Hematocrit 31.6 % (42.0-52.0); Hemoglobin 10.6 g/dL (14.0-18.0); Mean Corpuscular HGB CONC 33.5 g/dL (32.0-36.0); Mean Corpuscular Volume 80.6 fL (78.0-98.0); Mean Platelet Volume 10.1 fL (7.4-10.4); Platelet Count 463 10x3/uL (130-400); RBC Distribution Width 15.3 % (11.5-14.5); Red Blood Cell (RBC) Count 3.92 mill/uL (4.70-6.10)
[2023-09-28 16:25] LABS: ALT (SGPT) 11 U/L (8-55); AST (SGOT) 26 U/L (5-34); Albumin 2.8 g/dL (3.4-4.8); Alkaline Phosphatase 85 U/L (40-110); Anion Gap 19 mmol/L (10-20); BUN (Urea Nitrogen) 38 mg/dL (8.4-25.7); Bilirubin, Total 0.4 mg/dL (0.2-1.2); Calc. Creatinine Clearance 0 mL/min (70-130); Calcium 9.4 mg/dL (7.8-10.44); Carbon Dioxide 18 mmol/L (23-31); Chloride 104 mmol/L (98-107); Estimated GFR 41; Globulin 4.8 g/dL (2.4-3.5); Glucose 150 mg/dL (83-110); Lipase 11 U/L (8-78); Potassium 4.8 mmol/L (3.5-5.1); Protein, Total 7.6 g/dL (5.8-8.1); Sodium 136 mmol/L (136-145)
[2023-09-28] MEDS ORDERED: Ketorolac Tromethamine 30 MG (1 mL) VIAL ONE (18:55)
[2023-09-28 19:44] LABS: Lactic Acid 1.6 mmol/L (0.5-2.2)
[2023-09-28 20:03] LABS: Bacteria/HPF 4+ HPF (None Seen); Bilirubin Negative (Negative); Blood, Urine 3+ (Negative); CAUTI Indications for Culture Pelvic or flank pain; Clarity Extra Turbid (Clear); Glucose, Urine (Dipstick) Normal (Negative); Ketone, Urine Negative (Negative); Leukocyte 500 Leu/uL (Negative); Nitrite 1+ (Negative); Protein, Urine (Dipstick) 100 mg/dL (Neg-Trace); RBC/HPF 21-50 HPF (0-3); Specific Gravity, Urine 1.019 (1.002-1.036); Squamous Epithelial None Seen HPF (0-3); Urobilinogen Normal mg/dL (Less than 2); WBC/HPF Greater than 50 HPF (0-3)
[2023-09-28 20:26] LABS: Urine Culture Reflex Yes Yes
[2023-09-28] MEDS ORDERED: Acetaminophen 325 MG TAB PO PRN (21:45)
[2023-09-29 00:35] VITALS: BMI 38.5
[2023-09-29] MEDS: Meropenem 1 GM in Sodium Chloride 0.9% 100 ML IVPB SCH (00:47)
[2023-09-29] MEDS ORDERED: Bisacodyl 5 MG TAB PO PRN (01:59)
[2023-09-29] MEDS ORDERED: Albuterol 200 PUFF INH INH PRN (01:59)
[2023-09-29] MEDS ORDERED: Ipratropium/Albuterol 3 ML NEB NEB PRN (01:59)
[2023-09-29] MEDS ORDERED: Polyethylene Glycol 3350 17 GM Packet PO PRN (02:23)
[2023-09-29] MEDS ORDERED: Iopamidol 15 ML ONE (07:41)
[2023-09-29] MEDS: Artificial Tear Sol 15 ML BOT L EYE SCH (10:00)
[2023-09-29] MEDS: Amlodipine 10 MG TAB PO SCH (10:00)
[2023-09-29] MEDS: Cyanocobalamin (Vitamin B-12) 1,000 MCG TAB PO SCH (10:01)
[2023-09-29] MEDS: Cefepime 1 GM in Sodium Chloride 0.9% 100 ML IVPB SCH (10:01)
[2023-09-29] MEDS: Escitalopram Oxalate 20 mg Tablet PO SCH (10:01)
[2023-09-29] MEDS: Multivitamin W/ Minerals 1 TAB PO SCH (10:02)
[2023-09-29] MEDS: Memantine 5 MG TAB PO SCH (10:02)
[2023-09-29] MEDS: Losartan 25 MG TAB PO SCH (10:02)
[2023-09-29] MEDS: Magnesium Oxide 400 MG TAB PO SCH (10:02)
[2023-09-29] MEDS: Isosorbide Dinitrate 20 MG TAB PO SCH (10:02)
[2023-09-29] MEDS ORDERED: PROPOFOL 200 MG/20 ML VIAL ONE (10:38)
[2023-09-29] MEDS ORDERED: Dexamethasone 20 MG/5 ML VIAL ONE (10:38)
[2023-09-29] MEDS ORDERED: Lidocaine 1% PF 5 ML VIAL ONE (10:38)
[2023-09-29] MEDS ORDERED: Promethazine HCl 25 MG/ML VIAL IM PRN (11:38)
[2023-09-29] MEDS ORDERED: Morphine Sulfate 2 MG/ML SYRINGE SLOW IVP PRN (11:38)
[2023-09-29] MEDS ORDERED: PACU-Morphine 4MG/ML VIAL SLOW IVP PRN (11:38)
[2023-09-29] MEDS ORDERED: HYDROmorphone 2 MG/ML VIAL SLOW IVP PRN (11:38)
[2023-09-29] MEDS ORDERED: Ondansetron HCl/PF 4 MG/2 ML Vial IVP PRN (11:38)
[2023-09-29] MEDS: Sodium Chloride 0.9% 1,000 ML IV SCH (13:08)
[2023-09-29 14:39] LABS: #Basophils 0.04 10x3/uL (0.0-0.2); #Eosinphils Less than 0.03 10x3/uL (0.0-0.7); %Basophils 0.3 % (0.0-1.0); %Eosinophils 0.1 % (0.0-10.0); %Lymphocytes 1.9 % (21.0-51.0); %Neutrophils 93.2 % (42.0-75.0); Hematocrit 33.1 % (42.0-52.0); Hemoglobin 10.5 g/dL (14.0-18.0); Mean Corpuscular HGB CONC 31.7 g/dL (32.0-36.0); Mean Corpuscular Hemoglobin 26.2 pg (27.0-31.0); Mean Corpuscular Volume 82.5 fL (78.0-98.0); Mean Platelet Volume 9.6 fL (7.4-10.4); Platelet Count 402 10x3/uL (130-400); RBC Distribution Width 15.5 % (11.5-14.5); Red Blood Cell (RBC) Count 4.01 mill/uL (4.70-6.10)
[2023-09-29 14:58] LABS: ALT (SGPT) 25 U/L (8-55); AST (SGOT) 27 U/L (5-34); Albumin 2.7 g/dL (3.4-4.8); Alkaline Phosphatase 129 U/L (40-110); Anion Gap 15 mmol/L (10-20); BUN (Urea Nitrogen) 31 mg/dL (8.4-25.7); Bilirubin, Total 0.5 mg/dL (0.2-1.2); Calc. Creatinine Clearance 61 mL/min (70-130); Calcium 9.1 mg/dL (7.8-10.44); Carbon Dioxide 19 mmol/L (23-31); Chloride 108 mmol/L (98-107); Estimated GFR 45; Globulin 4.3 g/dL (2.4-3.5); Glucose 267 mg/dL (83-110); Potassium 4.7 mmol/L (3.5-5.1); Sodium 137 mmol/L (136-145)
[2023-09-29] MEDS: traMADol HCl 50 MG TAB PO PRN (16:38)
[2023-09-29] MEDS: Morphine 2 MG/ML VIAL SLOW IVP PRN (18:24)
[2023-09-29] MEDS ORDERED: Trospium 20 MG TAB PO SCH (21:00)
[2023-09-29] MEDS: traZODone HCl 50 MG TAB PO PRN (21:34)
[2023-09-29] MEDS: Tamsulosin HCl 0.4 MG CAP PO SCH (21:34)
[2023-09-29] MEDS: rOPINIRole HCl 1 MG TAB PO SCH (21:34)
[2023-09-29] MEDS: Atorvastatin Calcium 40 MG TAB PO SCH (21:34)
[2023-09-29] MEDS: Insulin Glargine 30 UNITS/0.3 ML VIAL SC SCH (21:47)
[2023-09-30 06:19] LABS: #Basophils 0.03 10x3/uL (0.0-0.2); #Eosinphils Less than 0.03 10x3/uL (0.0-0.7); %Basophils 0.3 % (0.0-1.0); %Lymphocytes 6.2 % (21.0-51.0); %Monocytes 7.7 % (0.0-10.0); %Neutrophils 85.2 % (42.0-75.0); Hematocrit 28.2 % (42.0-52.0); Hemoglobin 9.2 g/dL (14.0-18.0); Mean Corpuscular HGB CONC 32.6 g/dL (32.0-36.0); Mean Corpuscular Hemoglobin 26.4 pg (27.0-31.0); Mean Platelet Volume 9.8 fL (7.4-10.4); Platelet Count 384 10x3/uL (130-400); RBC Distribution Width 15.5 % (11.5-14.5); Red Blood Cell (RBC) Count 3.48 mill/uL (4.70-6.10)
[2023-09-30 07:16] LABS: Anion Gap 12 mmol/L (10-20); Carbon Dioxide 17 mmol/L (23-31); Chloride 108 mmol/L (98-107); Potassium 4.4 mmol/L (3.5-5.1); Sodium 133 mmol/L (136-145)
[2023-09-30 08:09] LABS: ALT (SGPT) 21 U/L (8-55); AST (SGOT) 16 U/L (5-34); Albumin 2.4 g/dL (3.4-4.8); Alkaline Phosphatase 103 U/L (40-110); BUN (Urea Nitrogen) 28 mg/dL (8.4-25.7); Bilirubin, Total 0.3 mg/dL (0.2-1.2); Calc. Creatinine Clearance 69 mL/min (70-130); Calcium 8.7 mg/dL (7.8-10.44); Estimated GFR 51; Globulin 4.1 g/dL (2.4-3.5); Glucose 261 mg/dL (83-110); Protein, Total 6.5 g/dL (5.8-8.1)
[2023-09-30] MEDS: Acetaminophen 325 MG TAB PO PRN (21:41)
[2023-10-01 07:51] LABS: #Basophils 0.04 10x3/uL (0.0-0.2); %Basophils 0.5 % (0.0-1.0); %Eosinophils 2.4 % (0.0-10.0); %Lymphocytes 15.9 % (21.0-51.0); %Monocytes 9.1 % (0.0-10.0); %Neutrophils 71.3 % (42.0-75.0); Hemoglobin 8.9 g/dL (14.0-18.0); Mean Corpuscular HGB CONC 31.8 g/dL (32.0-36.0); Mean Corpuscular Hemoglobin 26.9 pg (27.0-31.0); Mean Corpuscular Volume 84.6 fL (78.0-98.0); Mean Platelet Volume 9.6 fL (7.4-10.4); Platelet Count 374 10x3/uL (130-400); RBC Distribution Width 15.2 % (11.5-14.5); Red Blood Cell (RBC) Count 3.31 mill/uL (4.70-6.10)
[2023-10-01 07:53] LABS: ALT (SGPT) 13 U/L (8-55); AST (SGOT) 14 U/L (5-34); Albumin 2.3 g/dL (3.4-4.8); Alkaline Phosphatase 99 U/L (40-110); Anion Gap 12 mmol/L (10-20); BUN (Urea Nitrogen) 20 mg/dL (8.4-25.7); Bilirubin, Total 0.2 mg/dL (0.2-1.2); Calc. Creatinine Clearance 75 mL/min (70-130); Calcium 8.4 mg/dL (7.8-10.44); Carbon Dioxide 19 mmol/L (23-31); Chloride 109 mmol/L (98-107); Estimated GFR 57; Globulin 3.9 g/dL (2.4-3.5); Glucose 245 mg/dL (83-110); Potassium 4.3 mmol/L (3.5-5.1); Protein, Total 6.2 g/dL (5.8-8.1); Sodium 136 mmol/L (136-145)
[2023-10-01] MEDS ORDERED: Dextrose 50% Abboject 50 ML SYRINGE SLOW IVP PRN (11:41)
[2023-10-01] MEDS ORDERED: Dextrose 5% in Water 1,000 ML IV PRN (11:41)
[2023-10-01] MEDS ORDERED: Glucagon 1 MG/ML KIT IM PRN (11:41)
[2023-10-01] MEDS: Insulin Regular, Human 100 UNIT/ML 10 ML VIAL SC PRN (14:24)
[2023-10-01 18:31] LABS: Bacteria/HPF None Seen HPF (None Seen); Bilirubin Negative (Negative); Blood, Urine 2+ (Negative); Clarity Turbid (Clear); Glucose, Urine (Dipstick) Normal (Negative); Ketone, Urine Negative (Negative); Leukocyte 500 Leu/uL (Negative); Nitrite Negative (Negative); Protein, Urine (Dipstick) 20 mg/dL (Neg-Trace); RBC/HPF 21-50 HPF (0-3); Squamous Epithelial None Seen HPF (0-3); Urobilinogen Normal mg/dL (Less than 2); WBC/HPF Greater than 50 HPF (0-3)
[2023-10-01] MEDS ORDERED: Insulin Regular, Human 100 UNIT/ML 10 ML VIAL SC PRN (21:12)
[2023-10-02 04:46] LABS: #Basophils 0.06 10x3/uL (0.0-0.2); %Basophils 0.8 % (0.0-1.0); %Eosinophils 3.6 % (0.0-10.0); %Lymphocytes 21.6 % (21.0-51.0); %Monocytes 9.1 % (0.0-10.0); %Neutrophils 63.7 % (42.0-75.0); Hematocrit 28.6 % (42.0-52.0); Hemoglobin 9.2 g/dL (14.0-18.0); Mean Corpuscular HGB CONC 32.2 g/dL (32.0-36.0); Mean Corpuscular Hemoglobin 26.1 pg (27.0-31.0); Mean Platelet Volume 9.5 fL (7.4-10.4); Platelet Count 394 10x3/uL (130-400); RBC Distribution Width 15.2 % (11.5-14.5); Red Blood Cell (RBC) Count 3.53 mill/uL (4.70-6.10)
[2023-10-02 05:26] LABS: ALT (SGPT) 9 U/L (8-55); AST (SGOT) 11 U/L (5-34); Albumin 2.3 g/dL (3.4-4.8); Alkaline Phosphatase 85 U/L (40-110); Anion Gap 9 mmol/L (10-20); BUN (Urea Nitrogen) 15 mg/dL (8.4-25.7); Bilirubin, Total 0.3 mg/dL (0.2-1.2); Calc. Creatinine Clearance 88 mL/min (70-130); Calcium 8.3 mg/dL (7.8-10.44); Carbon Dioxide 20 mmol/L (23-31); Chloride 110 mmol/L (98-107); Estimated GFR 69; Globulin 3.7 g/dL (2.4-3.5); Glucose 119 mg/dL (83-110); Potassium 3.9 mmol/L (3.5-5.1); Sodium 135 mmol/L (136-145)
[2023-10-02 12:22] VITALS: BP 119/60; TEMP 98.2
== END 2023-10-02 15:29 | DRG 660 ==
LOC: ERS 13:27 → 2NO 21:29 → OBSVTOIN 09-30 12:20
PROVIDERS: ADMIT Student in an Organized Health Care Education/Training Program; ATTEND Hospitalist
PROC: 0T768DZ Dilation of Right Ureter with Intraluminal Device, Via Natural or Artificial Opening Endoscopic (ICD-10-PCS; principal; 2023-09-29)
PROC: 0T7D8ZZ Dilation of Urethra, Via Natural or Artificial Opening Endoscopic (ICD-10-PCS; 2023-09-29)
PROC: 0T9B80Z Drainage of Bladder with Drainage Device, Via Natural or Artificial Opening Endoscopic (ICD-10-PCS; 2023-09-29)
DX: N13.6 Pyonephrosis (principal); I13.0 Hypertensive heart and chronic kidney disease with heart failure and stage 1 through stage 4 chronic kidney disease, or unspecified chronic kidney disease; I50.42 Chronic combined systolic (congestive) and diastolic (congestive) heart failure; N17.9 Acute kidney failure, unspecified; J44.9 Chronic obstructive pulmonary disease, unspecified; B96.4 Proteus (mirabilis) (morganii) as the cause of diseases classified elsewhere; I48.0 Paroxysmal atrial fibrillation; E11.22 Type 2 diabetes mellitus with diabetic chronic kidney disease; N18.9 Chronic kidney disease, unspecified; F43.10 Post-traumatic stress disorder, unspecified; I25.10 Atherosclerotic heart disease of native coronary artery without angina pectoris; N40.0 Benign prostatic hyperplasia without lower urinary tract symptoms; E66.01 Morbid (severe) obesity due to excess calories; N35.912 Unspecified bulbous urethral stricture, male; E78.5 Hyperlipidemia, unspecified; F32.A Depression, unspecified; Z96.653 Presence of artificial knee joint, bilateral; Z79.899 Other long term (current) drug therapy; Z79.4 Long term (current) use of insulin; Z90.49 Acquired absence of other specified parts of digestive tract; Z98.890 Other specified postprocedural states; Z95.818 Presence of other cardiac implants and grafts; Z68.38 Body mass index [BMI] 38.0-38.9, adult
CPT/HCPCS: 36415; 36416; 74177; 74420; 80053; 81001; 83605; 83690; 83735; 83880; 84484; 85025; 87040; 87077; 87086; 87186; 93005; 96374; 96375; 96376; C1769; C2617; G0378; J0692; J1100; J1815; J1885; J2185; J2270; J2272; J2405; J2704; J3490; J7050; Q9967

== ENCOUNTER 2023-10-08 14:23 | Outpatient (CLI) | payer MEDICARE ==
[2023-10-08 15:56] LABS: Hematocrit 31.1 % (38.8-50.0); Hemoglobin 10.2 g/dL (13.5-17.5); Mean Corpuscular HGB CONC 32.8 g/dL (32.0-36.0); Mean Corpuscular Volume 82.3 fL (81.2-95.1); Mean Platelet Volume 9.5 fL (7.4-10.4); Platelet Count 497 10x3/uL (150-450); RBC Distribution Width 15.3 % (11.5-14.5); Red Blood Cell (RBC) Count 3.78 10x6/uL (4.32-5.72); White Blood Cell (WBC) Count 7.3 10x3/uL (3.5-10.5)
[2023-10-08 15:57] LABS: INR-International Normal Ratio 1.6; PTT 51.4 sec (22.0-33.0); Prothrombin Time 16.9 sec (9.5-12.1)
[2023-10-08 16:17] LABS: Anion Gap 14 mmol/L (10-20); BUN (Urea Nitrogen) 14 mg/dL (8.4-25.7); Calc. Creatinine Clearance 0 mL/min (70-130); Calcium 9.2 mg/dL (7.8-10.44); Carbon Dioxide 23 mmol/L (23-31); Estimated GFR 68; Glucose 180 mg/dL (83-110)
[2023-10-08 16:28] LABS: Chloride 102 mmol/L (98-107); Potassium 4.1 mmol/L (3.5-5.1); Sodium 135 mmol/L (136-145)
== END 2023-10-08 14:24 | disposition home or self-care (01) ==
LOC: LABBT 14:23
PROVIDERS: ATTEND Urology
DX: Z01.818 Encounter for other preprocedural examination (principal); N20.0 Calculus of kidney
CPT/HCPCS: 80048; 85027; 85610; 85730; 93005; 93010

== ENCOUNTER 2023-10-17 07:16 | Day surgery (SDC) | payer MEDICARE ==
[2023-10-08 14:55] VITALS: BMI 37.4
[2023-10-17] MEDS ORDERED: PROPOFOL 20 ML ONE (08:45)
[2023-10-17] MEDS ORDERED: Iopamidol 30 ML ONE (09:07)
[2023-10-17] MEDS ORDERED: fentaNYL 50 mcg/mL 1 mL Vial ONE (09:11)
[2023-10-17 09:14] LABS: INR-International Normal Ratio 1.1
[2023-10-17] MEDS ORDERED: Rocuronium Bromide 10 MG/ML (10ML VIAL) ONE (09:16)
[2023-10-17] MEDS ORDERED: Lidocaine 2% PF 5 ML VIAL ONE (09:16)
[2023-10-17] MEDS ORDERED: Sodium Chloride 0.9% 100 ML ONE (09:20)
[2023-10-17] MEDS ORDERED: Cefepime 2 GM VIAL ONE (09:20)
[2023-10-17 09:30] LABS: PTT 19.3 sec (22.9-36.1)
[2023-10-17] MEDS ORDERED: SUGAMMADEX SODIUM 200 MG/2 ML VIAL ONE (09:56)
[2023-10-17] MEDS ORDERED: Ondansetron PF 4 MG/2 ML Vial ONE (09:56)
[2023-10-17] MEDS ORDERED: Dexamethasone 4 mg/ml Vial ONE (09:56)
[2023-10-17] MEDS ORDERED: Phenazopyridine HCl 100 MG TAB ONE (11:08)
[2023-10-17 11:56] LABS: INR-International Normal Ratio 1.2; PTT 35.7 sec (22.9-36.1); Prothrombin Time 14.8 sec (12.0-14.7)
== END 2023-10-17 13:25 ==
LOC: SDC 07:16
PROVIDERS: ATTEND Urology
PROC: 0TC08ZZ Extirpation of Matter from Right Kidney, Via Natural or Artificial Opening Endoscopic (ICD-10-PCS; principal; 2023-10-17)
PROC: 0TC68ZZ Extirpation of Matter from Right Ureter, Via Natural or Artificial Opening Endoscopic (ICD-10-PCS; 2023-10-17)
PROC: 0T768DZ Dilation of Right Ureter with Intraluminal Device, Via Natural or Artificial Opening Endoscopic (ICD-10-PCS; 2023-10-17)
PROC: 0T7D8DZ Dilation of Urethra with Intraluminal Device, Via Natural or Artificial Opening Endoscopic (ICD-10-PCS; 2023-10-17)
DX: N20.2 Calculus of kidney with calculus of ureter (principal); N35.912 Unspecified bulbous urethral stricture, male; I11.0 Hypertensive heart disease with heart failure; I50.9 Heart failure, unspecified; I48.91 Unspecified atrial fibrillation; J44.9 Chronic obstructive pulmonary disease, unspecified; N40.0 Benign prostatic hyperplasia without lower urinary tract symptoms; E11.9 Type 2 diabetes mellitus without complications; E78.5 Hyperlipidemia, unspecified; I25.10 Atherosclerotic heart disease of native coronary artery without angina pectoris; K21.9 Gastro-esophageal reflux disease without esophagitis; Z95.818 Presence of other cardiac implants and grafts; Z96.653 Presence of artificial knee joint, bilateral; Z87.891 Personal history of nicotine dependence; Z79.4 Long term (current) use of insulin; Z79.01 Long term (current) use of anticoagulants; Z79.899 Other long term (current) drug therapy
CPT/HCPCS: 52356; 74018; 74420; 82365; 82962; 85610 ×2; 85730 ×2; C1747; C1769; C2617; J0692; J1100; J2001; J2405; J2704; J3010; J3490; Q9967; 36416; 88300

== ENCOUNTER 2024-03-07 10:17 | Outpatient (CLI) | payer MEDICARE ==
[2024-03-07] MEDS ORDERED: Iopamidol 370 76% 100 ML VIAL ONE (12:19)
== END 2024-03-07 10:18 | disposition home or self-care (01) ==
LOC: CT 10:17
PROVIDERS: ATTEND Urology
DX: N28.1 Cyst of kidney, acquired (principal); N20.2 Calculus of kidney with calculus of ureter; N26.1 Atrophy of kidney (terminal); J84.10 Pulmonary fibrosis, unspecified; I70.0 Atherosclerosis of aorta; K83.8 Other specified diseases of biliary tract; K44.9 Diaphragmatic hernia without obstruction or gangrene; K86.89 Other specified diseases of pancreas; K42.9 Umbilical hernia without obstruction or gangrene; Z90.49 Acquired absence of other specified parts of digestive tract; M47.819 Spondylosis without myelopathy or radiculopathy, site unspecified
CPT/HCPCS: 36415; 74178; 82565; Q9967